=== PATIENT | female | born 1990 | race Caucasian/White ===

== ENCOUNTER 2017-01-14 08:03 | Inpatient (IN) | payer BC ==
[2017-01-14 09:02] LABS: Hematocrit 30 % (35-47); Hemoglobin 9.8 g/dl (12.0-16.0); Mean Corpuscular HGB Conc 32 g/dl (31-36); Mean Corpuscular Hemoglobin 24 pg (27-31); Mean Corpuscular Volume 74 fL (80-97); Mean Platelet Volume 10 um3 (7.4-10.4); Red Blood Count 4.08 10^6/ul (4.0-5.4); Red Cell Distribution Width 16 % (10.5-15); White Blood Count 8.3 10^3/ul (3.5-10.8)
[2017-01-14 09:03] LABS: Comments Flag Yes
[2017-01-14 09:04] LABS: Add Diff/Slide Review? Slide Review Added
[2017-01-14] MEDS ORDERED: Oxytocin in LR* 20 UNITS/1,000 ML BAG IVPB SCH ×2 (09:15→13:00)
[2017-01-14] MEDS ORDERED: Glycerin ADULT SUPP PR PRN (12:20)
[2017-01-14] MEDS ORDERED: Dibucaine 1% 28.35 GM TUBE PR PRN (12:20)
[2017-01-14] MEDS ORDERED: oxyCODONE/Acetamin 5/325 MG* TAB PO PRN (12:20)
[2017-01-14] MEDS ORDERED: Witch Hazel PAD* JAR TOPICAL PRN (12:20)
[2017-01-14] MEDS ORDERED: Simethicone CHEW TAB* 80 MG PO SCH (12:30)
[2017-01-14] MEDS: Ibuprofen TAB* 600 MG PO PRN ×2 (13:06→19:45)
[2017-01-14] MEDS: Docusate CAP* 100 MG PO SCH ×2 (14:25→20:19)
[2017-01-14] MEDS: Acetaminophen TAB* 325 MG PO PRN ×3 (16:34→23:14)
[2017-01-15] MEDS: Ibuprofen TAB* 600 MG PO PRN ×2 (04:02→10:19)
[2017-01-15] MEDS: Acetaminophen TAB* 325 MG PO PRN (05:50)
[2017-01-15 06:57] LABS: Hematocrit 27 % (35-47); Hemoglobin 8.8 g/dl (12.0-16.0); Mean Corpuscular HGB Conc 33 g/dl (31-36); Mean Corpuscular Hemoglobin 24 pg (27-31); Mean Platelet Volume 10 um3 (7.4-10.4); Red Blood Count 3.61 10^6/ul (4.0-5.4); Red Cell Distribution Width 17 % (10.5-15); White Blood Count 10.2 10^3/ul (3.5-10.8)
[2017-01-15 07:09] LABS: Comments Flag Yes; Mean Corpuscular Volume 75 fL (80-97)
[2017-01-15 07:55] VITALS: BP 106/73
[2017-01-15] MEDS ORDERED: Ferrous Gluconate TAB* 324 MG TAB PO SCH (09:00)
[2017-01-15] MEDS: Docusate CAP* 100 MG PO SCH (10:19)
== END 2017-01-15 13:26 | disposition home or self-care (01) | DRG 560 ==
LOC: MCHOBOUT 08:03 → MCHOB 08:14
PROVIDERS: ADMIT Midwife; ATTEND Midwife
PROC: 10E0XZZ Delivery of Products of Conception, External Approach (ICD-10-PCS; principal; 2017-01-14)
PROC: 3E033VJ Introduction of Other Hormone into Peripheral Vein, Percutaneous Approach (ICD-10-PCS; 2017-01-14)
PROC: 10907ZC Drainage of Amniotic Fluid, Therapeutic from Products of Conception, Via Natural or Artificial Opening (ICD-10-PCS; 2017-01-14)
DX: O48.0 Post-term pregnancy (principal); D64.9 Anemia, unspecified; O77.0 Labor and delivery complicated by meconium in amniotic fluid; O90.81 Anemia of the puerperium; Z3A.40 40 weeks gestation of pregnancy; Z37.0 Single live birth
CPT/HCPCS: 36415; 85025; 86850; 86900; 86901; A9270-GY

== ENCOUNTER 2017-04-04 07:50 | Day surgery (SDC) | payer BC ==
[~2017-04-04 07:50] MED LIST: Buffered Lidocaine 0.9% SYRIN* 5 ML/SYR SYRINGE INTRADERM ONE; Famotidine IV* 10 MG/ML 2 ML (20 mg) IV ONE
[2017-04-04 07:57] LABS: UR Preg Internal Control QC Line Present
[2017-04-04] MEDS ORDERED: Famotidine IV* 10 MG/ML 2 ML (20 mg) ONE (08:41)
[2017-04-04] MEDS ORDERED: oxyCODONE/Acetamin 5/325 MG* TAB PO PRN (09:17)
[2017-04-04] MEDS ORDERED: HYDROmorphone* 1 MG/ML 1 ML SYR IV PRN (09:17)
[2017-04-04] MEDS ORDERED: DiMENhydriNATE IV* 50 MG/ML VIAL IV PUSH PRN (09:17)
[2017-04-04] MEDS ORDERED: Midazolam* 1 MG/ML 5 ML VIAL (5 MG) ONE (10:13)
[2017-04-04] MEDS ORDERED: fentaNYL* 50 MCG/ML 2 ML VIAL (100 MCG VIAL) ONE ×2 (10:13→11:00)
[2017-04-04] MEDS ORDERED: Dexamethasone IV* 4 MG/ML 1 ML (4 MG) ONE (10:16)
[2017-04-04] MEDS ORDERED: Ondansetron INJ* 2 MG/ML VIAL ONE (10:16)
[2017-04-04] MEDS ORDERED: DiMENhydriNATE IV* 50 MG/ML VIAL ONE (10:16)
[2017-04-04] MEDS ORDERED: Succinylcholine* 20 MG/ML 10 ML VIAL ONE (10:16)
[2017-04-04] MEDS ORDERED: Lidocaine 2% PF * 5 ML VIAL ONE (10:16)
[2017-04-04] MEDS ORDERED: Ketorolac INJ* 30 MG/ML 1 ML VIAL ONE (10:16)
[2017-04-04] MEDS ORDERED: Propofol* 10 MG/ML 20 ML BTL IV PUSH ONE (10:16)
[2017-04-04] MEDS ORDERED: Bupivacaine 0.5% W/EPI SDV* 10 ML VIAL INJ ONE (10:17)
[2017-04-04 12:07] VITALS: BP 120/82
--- NOTE | 2017-04-05 08:14 | OP ---
AMENDED REPORT NOW INCLUDES DATE OF OPERATION - ESIGNED BEFORE ADJUSTMENT * DATE OF OPERATION: 04/04/17 - [facility] DATE OF : 89 SURGEON: Dr. Arteaga. PROFESSIONAL NURSING ASSISTANT: None. ANESTHESIOLOGIST: Tonia Shields MD ANESTHESIA: General endotracheal tube. PRE-OP DIAGNOSIS: Desires permanent sterilization. POST-OP DIAGNOSIS: Desires permanent sterilization. OPERATIVE PROCEDURE: Laparoscopic bilateral tubal ligation. ESTIMATED BLOOD LOSS: Minimal. SPECIMENS: None. FINDINGS: On laparoscopy, anterior bladder flap appeared normal. Both tubes and ovaries appeared normal. The uterus appeared normal. DESCRIPTION OF PROCEDURE: The patient identified and procedure identified as laparoscopic bilateral tubal ligation. Taken to the operating room, prepped and draped in the usual sterile fashion in dorsal lithotomy position under general anesthesia. A small infraumbilical incision was made and a Veress needle inserted through this. The abdomen was insufflated to 15 mmHg and a trocar was inserted. Using the Visiport, the trocar was removed from the sheath and laparoscope was inserted and the above findings were noted. A second incision was made 2 cm above the pubic symphysis in the midline and a second trocar was inserted under direct visualization. The left fallopian tube was grasped in its mid portion, followed out to its fimbriated ends, and fulgurated x3. The same procedure was carried on the right after following out to its fimbriated ends. Good hemostasis was verified. All instruments were removed from the abdomen. The abdomen was deflated of CO2. The skin was closed using skin glue and all sponge and instrument counts were correct and the patient turned to the recovery room in stable condition. [id number]/[facility] #: [id number] ORIGINALLY E-SIGNED 04/05/17 - 1225 [address]ERT
== END 2017-04-04 12:45 | disposition home or self-care (01) ==
LOC: OR 07:50
PROVIDERS: ATTEND Obstetrics & Gynecology
DX: Z30.2 Encounter for sterilization (principal)
CPT/HCPCS: 81025; J0330; J1100; J1240; J1885; J2250; J2405; J2704; J3010

== ENCOUNTER 2018-07-11 13:40 | Emergency (ER) | payer BC ==
[2018-07-11 14:38] VITALS: BP 117/70
--- NOTE | 2018-07-11 14:55 | UC ---
Back Pain HPI - HPI Summary HPI Summary: C/O upper back pain x 2 weeks but with tingling today. 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 Also c/o sore throat and chills. Doesn't recall any distinct injury for the back. Tingling down the arms into the finger tips and the legs down into the toes. Happened this morning lasting for about 2 hours and resolved. Feet still feel "weird". - History of Current Complaint Chief Complaint: UCGeneralIllness Stated Complaint: BACK PAIN ARMS/LEGS TINGLY SORE THROAT CHILLS Time Seen by Provider: 07/11/18 14:42 Hx Last Menstrual Period: 06/16/18 ?: No Onset/Duration: Gradual Onset, Lasting Weeks - 2, Worse Since - onset Severity Initially: Mild Severity Currently: Moderate Pain Intensity: 7 Character: Dull - pressure sensation Aggravating Factor(s): Movement, Lifting, Walking Alleviating Factor(s): Rest, OTC Meds Associated Signs And Symptoms: Positive: Tingling, Pain with Weight Bearing. Negative: Weakness, Numbness, Bladder Incontinence, Bowel Incontinence - Allergies/Home Medications Allergies/Adverse Reactions: Allergies Allergy/AdvReac Type Severity Reaction Status Date / Time sertraline [From Zoloft] Allergy Rash Verified 07/11/18 14:38 Home Medications: Home Medications Ibuprofen 600 mg PO Q12HR 07/11/18 [History Confirmed 07/11/18] PMH/Surg Hx/FS Hx/Imm Hx Previously Healthy: Yes Other History Of: Negative For: HIV, Hepatitis B, Hepatitis C, Anticoagulant Therapy - Surgical History Surgical History: Yes Surgery Procedure, Year, and Place: TUBAL LIGATION - Family History Known Family History: Positive: Hypertension, Diabetes Negative: Cardiac Disease - Social History Occupation: Employed Full-time Lives: With Family Alcohol Use: Occasionally Substance Use Type: None Smoking Status (MU): Never Smoked Tobacco Have You Smoked in the Last Year: No - Immunization History Most Recent Influenza Vaccination: 07/28 Most Recent Tetanus Shot: 11/03/14 Most Recent Pneumonia Vaccination: none Review of Systems Constitutional: Chills ENT: Sore Throat Musculoskeletal: Arthralgia Neurological: Paresthesia Is Patient Immunocompromised?: No All Other Systems Reviewed And Are Negative: Yes Physical Exam Triage Information Reviewed: Yes Appearance: Well-Appearing, Well-Nourished, Pain Distress - mild Vital Signs: Initial Vital Signs Temp 99.7 F 07/11/18 14:35 Pulse 101 07/11/18 14:35 Resp 16 07/11/18 14:35 BP 117/70 07/11/18 14:35 Pulse Ox 100 07/11/18 14:35 Vital Signs Reviewed: Yes Eyes: Positive: Conjunctiva Clear ENT: Positive: Nasal congestion - with allergic changes., TMs normal, Tonsillar swelling, Tonsillar exudate Neck exam: Normal Respiratory Exam: Normal Cardiovascular Exam: Normal Musculoskeletal: Positive: Strength Intact, Other: - Mid thoracic spinous process tenderness. Neurological Exam: Other - sensation to pinprick bilateral arms and left leg. Neurological: Positive: Other: - decreased sensation to pinprick lateral right lower leg S1 dermatome. Patellar DTR 2+ bilaterally. Achilles absent bilaterally Diagnostics - Radiology No standard instances Xray Interpretation: No Acute Changes Radiology Interpretation Completed By: Radiologist Back Pain Course/Dx - Differential Dx/Diagnosis Differential Diagnosis/HQI/PQRI: Herniated Disc, Strain, Sprain Provider Diagnoses: Upper thoracic back pain. lumbar radicular pain. Pharyngitis Discharge - Sign-Out/Discharge Documenting (check all that apply): Patient Departure All imaging exams completed and their final reports reviewed: Yes - Discharge Plan Condition: Stable Disposition: HOME Patient Education Materials: Arthralgia (ED), Sciatica (ED), Pharyngitis (ED) Referrals: Esther Bah MD [Primary Care Provider] - 3 Days (follow up on the numbness on the right leg) Additional Instructions: Yoga can help to prevent back pain issues in the future. [employer] is a yoga denise for your phone. - Billing Disposition and Condition Condition: STABLE Disposition: Home
--- NOTE | 2018-07-11 15:31 | RAD ---
HISTORY: right L5 radiculopathy COMPARISONS: None VIEWS: 5 , Frontal, lateral, coned-down lateral sacral, and bilateral oblique views of the lumbar spine. FINDINGS: ALIGNMENT: There is a trace scoliotic curvature of the spine. VERTEBRAL BODIES: The vertebral body heights are normal. The interpedicular distances are normal. JOINTS: The facet joints are normal. INTERVERTEBRAL DISCS: The intervertebral disc heights are normal. SOFT TISSUE: Unremarkable. OTHER: The pelvis is unremarkable. The lung bases are clear. IMPRESSION: UNREMARKABLE RADIOGRAPHS OF THE LUMBAR SPINE
== END 2018-07-11 15:49 | disposition home or self-care (01) ==
LOC: UCCORT 13:40
DX: M54.6 Pain in thoracic spine (principal); M54.5 Low back pain; J02.9 Acute pharyngitis, unspecified; Z88.8 Allergy status to other drugs, medicaments and biological substances
CPT/HCPCS: 72110; 87651; 99211; G0463

== ENCOUNTER 2018-07-13 12:58 | Emergency (ER) | payer BC ==
--- NOTE | 2018-07-13 14:30 | ED ---
Complex/Multi-Sys Presentation - HPI Summary HPI Summary: Patient presents with multiple symptoms starting 2 weeks ago. She reports she had lower back pain more noticeable on the right starting 2 weeks ago while at work. This was a gradual onset and progressed throughout the day. 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 She's been tolerating this well but reports Friday while at work after turning a patient, she developed bilateral upper extremity and lower extremity tingling. She denies pain into her extremities however she did have pain across her lower back at that time. Associated symptom of headache. She sat down to rest which seemed to help a little. She finished her shift over the next 4 hours with ongoing symptoms. When she went home, her encouraged her to take an ibuprofen which took care of the extremity tingling. She noticed the next day she had return of lower extremity tingling without pain, numbness, change in bowel or bladder habits. She was concerned about her sx and opted to get a medical exam at [facility]. She reports while here, she was seen by Dr. Brock Lundberg who ordered a lumbar x-ray. Per report this appears to be without acute findings or chronic changes. Per patient, Dr. Lawrence "cracked her back" by having her cross her arms over her chest and lifted her off the ground. She denies any improvement in symptoms nor was her exacerbation. She is here today as she woke with left shoulder and arm pain and is unsure why. She denies chest pain, shortness of breath, jaw pain, diaphoresis, shortness fatigue and no history of cardiac issues personally or in family. Left shoulder pain is worse with flexion abduction and internal and external rotation. She admits she has a monster drink every morning and usually eats and drinks fairly well at work however she has not had breakfast today. When asked if she had nausea, vomiting or upset stomach she just reported I wasn't feeling hungry with shoulder pain. She does have a history of 2 pregnancies both vaginal. She admits her hips "click" since . May have some residual or weakness as a result. No known herniated disks in her neck, thoracic spine or lumbar spine. Additionally, she reports heavier periods of late. She did have anemia during her pregnancies as well. She does not have her restrictive diet and no known history of B12 deficiency. No reports of migraines or other neuro deficits as well as a family history of neurologic pathology. NOTE: pt reports fever, chills later last week along w/ a ST. She had a rapid strep at [facility] which was neg. No h/o mono, Lyme dz. Kids are in daycare and had fevers last week - no rashes. had fever for a couple of days as well. - History Of Current Complaint Chief Complaint: EDBackInjuryPain Time Seen by Provider: 07/13/18 13:48 Hx Obtained From: Patient, Family/Tire Molder - - Allergies/Home Medications Allergies/Adverse Reactions: Allergies Allergy/AdvReac Type Severity Reaction Status Date / Time sertraline [From Zoloft] Allergy Rash Verified 07/13/18 13:06 PMH/Surg Hx/FS Hx/Imm Hx Previously Healthy: Yes Endocrine/Hematology History: Reports: Hx Anemia - during Denies: Hx Anticoagulant Therapy, Hx Diabetes, Hx Thyroid Disease Cardiovascular History: Denies: Hx Aneurysm, Hx Angina, Hx Congenital Heart Disease, Hx Congestive Heart Failure, Hx Deep Vein Thrombosis, Hx Hypotension, Hx Hypertension, Hx Myocardial Infarction, Hx Pacemaker/ICD, Hx Syncope, Hx Valvular Heart Disease Respiratory History: Denies: Hx Asthma, Hx Chronic Obstructive Pulmonary Disease (COPD), Hx Lung Cancer, Hx Pneumonia, Hx Pulmonary Embolism GI History: Denies: Hx Gall Bladder Disease, Hx Gastrointestinal Bleed, Hx Ulcer, Hx Urosepsis History: Denies: Hx Kidney Stones, Hx Renal Disease Musculoskeletal History: Reports: Hx Back Problems - LBP intermittently over past few years Denies: Hx Arthritis, Hx Fibromyalgia, Hx Osteoporosis, Hx Scoliosis, Hx Tendonitis, Hx of Fracture(s) Sensory History: Denies: Hx Contacts or Glasses, Hx Hearing Aid Opthamlomology History: Denies: Hx Contacts or Glasses Neurological History: Denies: Hx Dementia, Hx Migraine, Hx Seizures, Hx Transient Ischemic Attacks (TIA) Psychiatric History: 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 Denies: Hx Anxiety, Hx Schizophrenia, Hx Bipolar Disorder - Surgical History Surgery Procedure, Year, and Place: TUBAL LIGATION Infectious Disease History: No Infectious Disease History: Denies: Hx Hepatitis, Hx Human Immunodeficiency Virus (HIV), Traveled Outside the [place] in Last 30 Days - Family History Known Family History: Positive: Hypertension, Diabetes Negative: Cardiac Disease - Social History 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 Lives: With Family Alcohol Use: Daily Alcohol Amount: 1 or 2 per day Hx Substance Use: No Substance Use Type: Reports: None Hx Tobacco Use: No Smoking Status (MU): Never Smoked Tobacco Have You Smoked in the Last Year: No Review of Systems Constitutional: Negative Eyes: Negative ENT: Negative Cardiovascular: Negative Respiratory: Negative Gastrointestinal: Negative Positive: no symptoms reported Positive: Arthralgia, Myalgia Skin: Negative Neurological: Negative Psychological: Normal All Other Systems Reviewed And Are Negative: Yes Physical Exam Triage Information Reviewed: Yes Vital Signs On Initial Exam: Initial Vitals Temp Pulse Resp BP Pulse Ox 98.3 F 69 14 146/97 100 07/13/18 13:04 07/13/18 13:04 07/13/18 13:04 07/13/18 13:04 07/13/18 13:04 Vital Signs Reviewed: Yes Appearance: Positive: Well-Appearing, No Pain Distress, Well-Nourished Skin: Positive: Warm, Skin Color Reflects Adequate Perfusion, Dry - no rash Head/Face: Positive: Normal Head/Face Inspection Eyes: Positive: Normal, EOMI, Conjunctiva Clear ENT: Positive: Hearing grossly normal, Pharyngeal erythema - cobblestoning, TMs normal, Tonsillar swelling - B/L tonsils w/ erythema (Rt > Lt) and swelling, cryptic - no exudates, Other. Negative: Nasal drainage Neck: Positive: Supple, Nontender, No Lymphadenopathy. Negative: Nuchal Rigidity Respiratory/Lung Sounds: Positive: Clear to Auscultation, Breath Sounds Present. Negative: Rales, Rhonchi, Wheezes Cardiovascular: Positive: Normal, RRR, Pulses are Symmetrical in both Upper and Lower Extremities Abdomen Description: Positive: Nontender, No Organomegaly, Soft Musculoskeletal: Positive: Strength/ROM Intact - FROM spine w/o exacerbation/re- creation of tingling sx; spinous pp and paraspinal mm NTTP; pt reports mild discomfort in RLB w/ lumbar flexion but this at end range - no pain w/ any other lumbar ROM's., Pain @ - Lt shoulder ROM limited to 90 degrees abduction d/ t pain - she has FROM w/ flexion, internal and external rotation but has pain and "clicking/snapping" w/ these movements into shoulder -no exacerbation of tingling in UE's Neurological: Positive: Alert, Oriented to Person Place, Time, CN Intact II-III , Reflexes Intact - + 2 equal B/L. Negative: Sensory/Motor Intact - motor 5/5 equal B/L; sensation grossly intact and equal B/L EXCEPT slightly decreased sensation over Lt plantar surface compared to Rt (sensation is still present here) Psychiatric: Positive: Anxious Diagnostics - Vital Signs Vital Signs Temp Pulse Resp BP Pulse Ox 07/13/18 13:04 98.3 F 69 14 146/97 100 - Laboratory Result Diagrams: 07/13/18 15:15 07/13/18 15:15 Lab Statement: Any lab studies that have been ordered have been reviewed, and results considered in the medical decision making process. Re-Evaluation - Re-Evaluation First Eval Change: Improved Complex Multi-Symp Course/Dx Course Of Treatment: XR - cervical spine: straightening of lordosis - no DDD, stenosis. XR Lt shoulder: no acute findings. Labs: low K, low iron; mono and Lyme neg - Diagnoses Provider Diagnoses: Iron (Fe) deficiency anemia, Hypokalemia, Left shoulder tendonitis Discharge - Sign-Out/Discharge Documenting (check all that apply): Patient Departure - Discharge Plan Condition: Stable Disposition: HOME Patient Education Materials: Iron Rich Diet (ED), Hypokalemia (ED), Tendinitis (ED) Forms: *Work Release Referrals: Esther Bah MD [Primary Care Provider] - Additional Instructions: The definitive cause of your multiple issues was broken down into Left shoulder tendonitis and nutrient deficiency. It is important that you rest your shoulder and follow-up with your PCP. See education about tendonitis for supplemental care at home. If no relief, you may benefit from physical therapy. For your nutrient deficiency, it is important that you consume a well-balanced diet and reduce caffeine intake as this may alter your perception of hunger, resulting in reduced food intake. Specifically you were found to have low potassium and low iron. These may be replaced by consuming foods rich in these supplements. See education but also follow-up with PCP if you need further guidance on not only what a well-balanced diet looks like but also how to implement this into your daily routine (ie. meal prep, etc). If symptoms return or you feel worse despite recommendations, follow-up with PCP or return to ED - Billing Disposition and Condition Condition: STABLE Disposition: Home
[2018-07-13 15:22] LABS: ABS Basophils 0 10^3/ul (0-0.2); ABS Eosinophils 0 10^3/ul (0-0.6); ABS Lymphocytes 1.6 10^3/ul (1.0-4.8); ABS Monocytes 0.3 10^3/ul (0-0.8); ABS Neutrophils 2.8 10^3/ul (1.5-7.7); ABS Nucleated RBC 0 10^3/ul; Eosinophil % 0.5 % (0-6); Hematocrit 37 % (35-47); Hemoglobin 12.6 g/dl (12.0-16.0); Lymphocyte % 33.8 % (25-47); Mean Corpuscular HGB Conc 34 g/dl (31-36); Mean Corpuscular Hemoglobin 29 pg (27-31); Mean Corpuscular Volume 85 fL (80-97); Mean Platelet Volume 9.4 um3 (7.4-10.4); Nucleated Red Blood Cells % 0.1; Platelet Count 180 10^3/ul (150-450); Red Blood Count 4.38 10^6/ul (4.00-5.40); Red Cell Distribution Width 15 % (10.5-15); White Blood Count 4.9 10^3/ul (3.5-10.8)
--- NOTE | 2018-07-13 15:23 | RAD ---
Indication: LEFT shoulder pain and clicking. Tendinitis versus osteoarthritis. Comparison: No relevant prior exams available on the [facility] for comparison. Technique: Internal rotation AP, external rotation Grashey, scapular Y, axillary views LEFT shoulder Report: Negative for fracture. Normal acromioclavicular and glenohumeral joint alignment. Preserved joint spaces negative for calcific tendinopathy or abnormal soft tissue contour. IMPRESSION: #. Negative radiographic exam of the LEFT shoulder.
--- NOTE | 2018-07-13 15:27 | RAD ---
HISTORY: UE/LE tingling COMPARISONS: None VIEWS: 6 , Frontal, lateral, open-mouth odontoid, and bilateral oblique views of the cervical spine. FINDINGS: The cervical spine is visualized from the skull base through T1 . ALIGNMENT: There is straightening of the normal cervical lordosis. VERTEBRAL BODIES: The odontoid process is intact. The atlantoaxial intervals are symmetric. JOINTS: There is no subluxation or dislocation. The facet joints are unremarkable. There is no osseous or neuroforaminal narrowing on the oblique views. INTERVERTEBRAL DISCS: The intervertebral disc heights are normal. SOFT TISSUE: The prevertebral soft tissues are normal. OTHER: The skull base is normal. The lung apices are clear. IMPRESSION: STRAIGHTENING OF THE CERVICAL LORDOSIS.
[2018-07-13 15:39] LABS: EGFR Non-African American 124.2 (>60)
[2018-07-13] MEDS ORDERED: Potassium Chlor TAB* 20 MEQ TAB.ER PO ONE (15:45)
[2018-07-13] MEDS ORDERED: Ibuprofen TAB* 600 MG PO ONE (15:47)
[2018-07-13 16:46] VITALS: BP 110/73
== END 2018-07-13 16:44 | disposition home or self-care (01) ==
LOC: ED 12:58
DX: D50.9 Iron deficiency anemia, unspecified (principal); E87.6 Hypokalemia; M77.9 Enthesopathy, unspecified; Z88.8 Allergy status to other drugs, medicaments and biological substances
CPT/HCPCS: 36415; 72050; 80053; 82607; 83540; 83550; 83605; 84443; 85025; 86140; 86308; 86618; 99282; A9270-GY

== ENCOUNTER 2018-12-03 15:12 | Emergency (ER) | payer BC, MEDICAID, OTHER ==
--- OUTSIDE RECORDS SUMMARY | 2018-12-03 15:26 | XMS REPORT | Continuity of Care Document ---
:1990 External Reference #:[id number] Author Name Mitch Ken CNM Address [address] [place] [address] Care Team Providers Name Role Phone Leonor Goodman NP Primary Care Physician Unavailable Payers Type Date Identification Numbers Payment Provider Subscriber Policy Number: [id number] [employer] Bernabe Morrill PayID: [id number] [address] [place] [address] Policy Number: [id number] Medicaid [place] Bernabe Morrill PayID: [id number] [address] [place] [address] Policy Number: [id number] [employer]/BS [facility] Carla Alcantara PayID: [id number] [place] [address] Expires: 2018 Policy Number: [id number] [employer] BC/BS [facility] PayID: [id number] [place] [address] Advance Directives Description No Information Available Problems Date Description Provider Status Onset: 07/14/2014 Primigravida Mitch Ken CNM Resolved Resolved: 06/12/2016 Onset: 07/14/2014 H/O: depression Mitch Ken CNM Resolved Resolved: 06/12/2016 Onset: 06/12/2016 Multigravida Sheila Adame CNM Resolved Resolved: 01/14/2017 Family History Date Family Member(s) Problem(s) Comments Father Hypertension Father Bipolar Disorder Mother Hypertension Mother Hyperlipidemia Children 2 First Son A&W First Daughter A&W First Brother A&W Second Brother A&W Third Brother A&W half brother First Sister A&W half sister ? 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 No further problems Allergies, Adverse Reactions, Alerts Date Description Reaction Status Severity Comments 04/22/2018 Zoloft rash Active 07/14/2014 NKDA Inactive Medications Medication Date Status Form Strength Qnty SIG Indications Ordering Provider Sprintec 11/04 Active Tablets 0.25-35mg 84tab 1 by mouth osmane -mcg s every day ISABEL Ken No Active 04/22 Hx Unknown Medications /2017 - 11/04 Sertraline 07/10 Hx Tablets 50mg 30tab for initiation Mahrie HCL s take 1/2 tab Gerald Ken by mouth x 6 CNM 08/08 days then take 1 tab by mouth every day Oxycodone-Rick 04/01 Hx Tablets 5-325mg 30tab 1 by mouth Z01.818 Carl Spence taminophen s q4hr Gelber, - M.D. 07/09 Ibuprofen 04/01 Hx Tablets 600mg 30tab take one tab Z01.818 Carl A. /2016 s by mouth every Gelber, - 6 hours as M.D. 08/08 needed pain No Active 03/28 Hx Unknown Medications /2016 - 03/28 Sertraline 03/28 Hx Tablets 100mg 30tab 1 by mouth Angelinerie HCL s every day Gerald Ken CNM 07/10 Ativan 03/28 Hx Tablets 0.5mg 15tab take 1 to 2 Mitch s tablets by Jesus Manuel - mouth every 4 CNM 04/22 hours as /2018 needed for anxiety (max of 6 per day) Sertraline 03/18 Hx Tablets 50mg 30tab 1 tab by mouth O90.6 Mahrie HCL /2016 s every day Jesus Manuel, - CNM 03/28 Sertraline 02/17 Hx Tablets 50mg 30tab for initiation Z39.2 Mahrie HCL /2016 s take 1/2 tab Jesus Manuel, - by mouth x 6 CNM 03/18 days then take 1 tab by mouth every day Ferrousul 10/16 Hx Tablets 325(65Fe) 90tab 1 tab by mouth Lynette /2016 mg s twice a day Shakira - (take with , CNM 02/26 orange juice or vit c tab) Sprintec 28 08/29 Hx Tablets 0.25-35mg 84tab 1 by mouth Carl Spence -mcg s every day Gerald Arteaga M.D. 06/12 Depo-Provera 03/09 Hx Suspension 150mg/ml 1unit 1 Lynette s intramuscular Shakira - injection , [facility] 08/28 every 3months for contraception Zantac 75 10/11 Hx Tablets 75mg 30tab 1 tab by mouth Lynette s every day as Shakira - needed for , CN 02/03 heartburn No Active 07/14 Hx Unknown Medications /2013 - 07/14 Hx Unknown Vitamin /0000 - 07/14 Plus Hx Tablets 7-0.4-100 100ta ok to Unknown Dha /0000 mg bs substitute pnv - + dha covered 03/09 by pt /2014 insurance 1 daily by mouth Medications Administered in Office Medication Date Status Form Strength Qnty SIG Indications Ordering Provider PT SCRN Tbco Administered Injection Mahrie Id as Non User 019 ISABEL Ken PT SCRN Tbco Administered Injection Mahrie Id as Non User 018 ISABEL Ken Immunizations CPT Code Status Date Vaccine Lot # [id number] Given 10/29/2016 Tetnus, Diptheria Toxoids And Acellular Pertussis, [id number] PT > 7Yrs Old [id number] Given 11/03/2014 Tetnus, Diptheria Toxoids And Acellular Pertussis, [id number] PT > 7Yrs Old 19876 Given 07/14/2014 Influenza Virus Vaccine Split Virus Use For [id number] Individual 3Yr Older Vital Signs Date Vital Result Comment 11/04/2018 12:53pm BP Systolic 114 mmHg BP Diastolic 72 mmHg Height 63 inches 5'3" Weight 144.00 lb BMI (Body Mass Index) 25.5 kg/m2 Last Menstrual Period 4860927 2 Parity 2 04/22/2018 1:56pm BP Systolic 110 mmHg BP Diastolic 74 mmHg Height 63 inches 5'3" Weight 150.00 lb BMI (Body Mass Index) 26.6 kg/m2 Last Menstrual Period 9230869 2 Parity 2 08/08/2017 8:13am BP Systolic 114 mmHg BP Diastolic 70 mmHg Height 63 inches 5'3" Weight 153.00 lb BMI (Body Mass Index) 27.1 kg/m2 Last Menstrual Period 7035695 2 Parity 2 07/10/2017 2:22pm BP Systolic 110 mmHg BP Diastolic 68 mmHg Height 63 inches 5'3" Weight 150.00 lb BMI (Body Mass Index) 26.6 kg/m2 Last Menstrual Period 4909650 2 Parity 2 04/10/2017 9:52am BP Systolic 120 mmHg BP Diastolic 76 mmHg Body Temperature 98.2 F Height 63 inches 5'3" Weight 144.00 lb BMI (Body Mass Index) 25.5 kg/m2 Last Menstrual Period 9167919 2 Parity 2 04/01/2017 1:00pm BP Systolic 120 mmHg BP Diastolic 76 mmHg Body Temperature 98.2 F Oral Heart Rate 60 /min Respiratory Rate 20 /min Height 63 inches 5'3" Weight 146.00 lb BMI (Body Mass Index) 25.9 kg/m2 Last Menstrual Period 0092601 2 Parity 2 03/18/2017 10:05am BP Systolic 114 mmHg BP Diastolic 64 mmHg Height 63 inches 5'3" Weight 147.00 lb BMI (Body Mass Index) 26.0 kg/m2 Last Menstrual Period 9474164 2 Parity 2 02/26/2017 11:12am BP Systolic 122 mmHg BP Diastolic 66 mmHg Height 63 inches 5'3" Weight 146.00 lb BMI (Body Mass Index) 25.9 kg/m2 Last Menstrual Period 9555741 2 Parity 2 02/17/2017 2:57pm BP Systolic 112 mmHg BP Diastolic 70 mmHg Height 63 inches 5'3" Weight 150.00 lb BMI (Body Mass Index) 26.6 kg/m2 Last Menstrual Period 1724530 2 Parity 2 06/12/2016 1:33pm BP Systolic 120 mmHg BP Diastolic 64 mmHg Height 63 inches 5'3" Weight 145.00 lb BMI (Body Mass Index) 25.7 kg/m2 Last Menstrual Period 0016624 2 Parity 1 08/29/2015 1:10pm BP Systolic 122 mmHg BP Diastolic 76 mmHg Height 63 inches 5'3" Weight 155.00 lb BMI (Body Mass Index) 27.5 kg/m2 Last Menstrual Period 4170886 1 Parity 1 03/09/2015 10:08am BP Systolic 112 mmHg BP Diastolic 72 mmHg Height 63 inches 5'3" Weight 152.00 lb BMI (Body Mass Index) 26.9 kg/m2 Last Menstrual Period 9051978 1 Parity 1 02/03/2015 12:54pm BP Systolic 122 mmHg BP Diastolic 72 mmHg Body Temperature 99.6 F Height 63 inches 5'3" Weight 151.00 lb BMI (Body Mass Index) 26.7 kg/m2 Last Menstrual Period 6826432 1 Parity 1 07/14/2014 7:47am BP Systolic 112 mmHg BP Diastolic 66 mmHg Height 63 inches 5'3" Weight 143.00 lb BMI (Body Mass Index) 25.3 kg/m2 Last Menstrual Period 1708227 1 Parity 0 Results Test Date Facility Test Result H/L Range Note Laboratory test 04/22/2018 [facility] Cytology SEE RESULT [address] [place] [address] BELOW [phone] CBC With No Diff 07/10/2017 [facility] White Blood 7.3 10^3/uL N 3.5-10.8 [place] [address] Count [phone] Red Blood Count 4.76 10^6/uL N 4.0-5.4 Hemoglobin 12.5 g/dL N 12.0-16.0 Hematocrit 40 % N 35-47 Mean Corpuscular Volume 84 fL N 80-97 Mean Corpuscular Hemoglobin 26 pg Low 27-31 Mean Corpuscular HGB Conc 31 g/dL N 31-36 Red Cell Distribution Width 17 % High 10.5-15 Platelet Count 251 10^3/uL N 150-450 Mean Platelet Volume 9 um3 N 7.4-10.4 Laboratory test 07/10/2017 [facility] HCG 0.85 mIU/mL N [address] [place] [address] [phone] Prolactin 5.8 ng/mL N 1.0-25.0 3 TSH 3.20 mcIU/mL N 0.34-5.60 4 T4 Free 0.68 ng/dL N 0.61-1.12 5 Laboratory test 04/04/2017 [facility] Negative N Negative [address] [place] [address] (HCG) Urine [phone] CBC Auto Diff 04/01/2017 [facility] White Blood 6.9 10^3/uL N 3.5-10.8 [place] [address] Count [phone] Red Blood Count 4.66 10^6/uL N 4.0-5.4 Hemoglobin 12.0 g/dL N 12.0-16.0 Hematocrit 38 % N 35-47 Mean Corpuscular Volume 80 fL N 80-97 Mean Corpuscular Hemoglobin 26 pg Low 27-31 Mean Corpuscular HGB Conc 32 g/dL N 31-36 Red Cell Distribution Width 20 % High 10.5-15 Platelet Count 242 10^3/uL N 150-450 Mean Platelet Volume 9 um3 N 7.4-10.4 Abs Neutrophils 3.7 10^3/uL N 1.5-7.7 Abs Lymphocytes 2.5 10^3/uL N 1.0-4.8 Abs Monocytes 0.6 10^3/uL N 0-0.8 Abs Eosinophils 0.1 10^3/uL N 0-0.6 Abs Basophils 0 10^3/uL N 0-0.2 Abs Nucleated RBC 0.01 10^3/uL N Granulocyte % 52.7 % N 38-83 Lymphocyte % 36.6 % N 25-47 Monocyte % 8.7 % N 1-9 Eosinophil % 1.6 % N 0-6 Basophil % 0.4 % N 0-2 Nucleated Red Blood Cells % 0.1 N Laboratory test 12/10/2016 [facility] Group B Strep SEE RESULT 7, [address] [place] [address] Culture Screen BELOW [phone] Laboratory test 10/15/2016 [facility] Glucose 1 HR 79 mg/dL N 70-16 [address] [place] [address] Post Prandial 0 [phone] CBC With No Diff 10/15/2016 [facility] White Blood 8.3 10^3/uL N 3.5-1 [place] [address] Count 0.8 [phone] Red Blood Count 3.50 10^6/uL Low 4.0-5.4 Hemoglobin 10.5 g/dL Low 12.0-16.0 Hematocrit 31 % Low 35-47 Mean Corpuscular Volume 89 fL N 80-97 Mean Corpuscular Hemoglobin 30 pg N 27-31 Mean Corpuscular HGB Conc 34 g/dL N 31-36 Red Cell Distribution Width 13 % N 10.5-15 Platelet Count 183 10^3/uL N 150-450 Mean Platelet Volume 10 um3 N 7.4-10.4 PNL No 06/12/2016 [facility] Rubella Screen Immune IU/ [place] [address] [phone] Hemoglobin A1c 5.2 % N Less than 6.0 10 Hepatitis B Surface Ag Nonreactive N Nonreactive 11 Syphillis Igg W/Reflex RPR Nonreactive N Nonreactive 12 CBC With No 06/12/2016 [facility] White Blood 7.3 10^3/uL N 3.5-10.8 [place] [address] Count [phone] Red Blood Count 4.39 10^6/uL N 4.0-5.4 Hemoglobin 12.3 g/dL N 12.0-16.0 Hematocrit 38 % N 35-47 Mean Corpuscular Volume 87 fL N 80-97 Mean Corpuscular Hemoglobin 28 pg N 27-31 Mean Corpuscular HGB Conc 32 g/dL N 31-36 Red Cell Distribution Width 17 % High 10.5-15 Platelet Count 198 10^3/uL N 150-450 Mean Platelet Volume 10 um3 N 7.4-10.4 Type And Screen 06/12/2016 [facility] [place] [address] Type [phone] Antibody Screen NEGATIVE N HIV 1/2 AB 06/12/2016 [facility] HIV 1 2 Nonreactive N Nonreactive [address] [place] [address] Antibody [phone] Lead 06/12/2016 [facility] Lead <1.0 g/dL N 0.0-4.9 14 [place] [address] [phone] Parvovirus 06/12/2016 [facility] Parvovirus 5.01 index Abnormal <0.90 [address] [place] [address] (B19) IgG Igm [phone] Antibody Parvovirus (B19) IgM Antibody 0.22 index N <0.90 16 Parvovirus Interpretation See Comment N 17 Laboratory test 06/12/2016 [facility] Cytology SEE RESULT [address] [place] [address] BELOW [phone] GC/Chlamydia 06/12/2016 [facility] Chlamydia Negative [place] [address] trachomatis Rna [phone] Neisseria gonorrhoeae (GC) Rna Negative N Negative Urine Culture And 06/12/2016 [facility] Urine Culture SEE RESULT 19 [place] [address] BELOW [phone] Laboratory test 12/29/2014 [facility] Group B Strep (SEE NOTE) [address] [place] [address] Culture Screen [phone] Urine Culture And 12/13/2014 [facility] Urine Culture (SEE NOTE ) [address] [place] [address] [phone] Urinalysis Profile 12/13/2014 [facility] [place] [address] [phone] Urine Appearance Cloudy N Urine Specific [place] 1.021 N 1.010-1.030 Urine pH 6.0 N 5-9 Urine Urobilinogen Negative N Negative Urine Ketones Trace Abnormal Negative Urine Protein Negative N Negative Urine Leukocytes 1+ Abnormal Negative Urine Blood Negative N Negative Urine Nitrite Negative N Negative Urine Bilirubin Negative N Negative Urine Glucose Negative N Negative Urine White Blood Cell 1+(6-10/hpf) Abnormal Absent Urine Red Blood Cell Trace(0-2/hpf) N Absent Urine Bacteria Absent N Absent Urine Squamous Epithelial Cell Present Abnormal Absent Laboratory test 11/03/2014 [facility] Glucose 1 HR 81 mg/dL N 70-160 [place] [address] Post Prandial [phone] CBC With No Diff 11/03/2014 [facility] White Blood 8.3 10^3/uL N 4.8-10.8 [place] [address] Count [phone] Red Blood Count 3.53 10^6/uL Low 4.0-5.4 Hemoglobin 11.0 g/dL Low 12.0-16.0 Hematocrit 33 % Low 35-47 Mean Corpuscular Volume 92 fL N 80-97 Mean Corpuscular Hemoglobin 31 pg N 27-31 Mean Corpuscular HGB Conc 34 g/dL N 31-36 Red Cell Distribution Width 13 % N 10.5-15 Platelet Count 184 10^3/uL N 150-450 Mean Platelet Volume 10 um3 N 7.4-10.4 GC/Chlamydia Dna 08/11/2014 [facility] GC/Chlamydia Rna (SEE NOTE) [address] [place] [address] [phone] PNL No 07/14/2014 [facility] Rubella Screen Immune N Immune 23 [place] [address] IU/mL [phone] Hemoglobin A1c 5.0 % N Less than 6.0 24 Hepatitis B Surface Antigen Nonreactive N Nonreactive 25 RPR 07/14/2014 [facility] Syphilis IgG TNP N Nonreactive [address] [place] [address] [phone] RPR Nonreactive N Nonreactive 27 RPR Titer TNP N Pediatric/Maternal YES N CBC With No 07/14/2014 [facility] White Blood 8.6 10^3/uL N 4.8-10.8 [place] [address] Count [phone] Red Blood Count 4.37 10^6/uL N 4.0-5.4 Hemoglobin 13.5 g/dL N 12.0-16.0 Hematocrit 39 % N 35-47 Mean Corpuscular Volume 90 fL N 80-97 Mean Corpuscular Hemoglobin 31 pg N 27-31 Mean Corpuscular HGB Conc 35 g/dL N 31-36 Red Cell Distribution Width 14 % N 10.5-15 Platelet Count 223 10^3/uL N 150-450 Mean Platelet Volume 9 um3 N 7.4-10.4 Type And Screen 07/14/2014 [facility] [place] [address] Type [phone] Antibody Screen NEGATIVE N HIV 1/2 AB 07/14/2014 [facility] HIV 1 2 Nonreactive N Nonreactive [address] [place] [address] Antibody [phone] Toxoplasma Igg 07/14/2014 [facility] Toxoplasma Negative N Negative & [place] [address] IgG Antibody [phone] Toxoplasma IgG Antibody Index <3 IU/mL N 29 Toxoplasma IgM Antibody Negative N Negative Toxoplasma IgM Antibody Index <0.55 threshold N 30 Urine Culture And 07/14/2014 [facility] Urine Culture (SEE NOTE ) [address] [place] [address] [phone] SEE RESULT BELOW Name: BERNABE WHARTON : [address]: Mitch Ken CNM Acct: [id number] Unit: [id number] AGE: 27 Location: [facility] Re04/22/18 SEX: F Status: REG REF SPEC: [id number] CARLOS: 04/22/18-[address] [facility] [address]: Mitch Ken CNM REQ: [id number] RECD: 04/23/18-1230 STATUS: SOUT _ ORDERED: TP IMAGE ANALYS COMMENTS: [id number] Negative for Intraepithelial lesion or Malignancy A. Ectocervical/Endocervical Specimen Adequacy: Satisfactory of evaluation Transformation zone component identified Patient Information: HPV: Thin Layer Pap Test w/reflex to high risk HPV RNA testing when ASCUS Actual Specimen Date: 04/22/18 Last Menstrual Date: 03/30/18 Date of Last Specimen: 06/12/16 ?: N Post Menopausal?: N Hysterectomy?: N Previous Abnormal Pap Smears?:N Signed by and Reported on: SILVIA Cristina(ASCP) 1341 This Pap test was evaluated with the assistance of the IcarusPrep Test Imaging System. Due to cytologic findings at the rural health consultant microscope, comprehensive manual rescreening by a Automobile Accessories Installer may be required. The Pap Smear is a screening test designed to aid in the detection of premalignant and malignant conditions of the uterine cervix. It is not a diagnostic procedure and should not be used as the sole means of detecting cervical cancer. Both false- positive and false- negative reports do occur. Depending on your risk status, a Pap smear should be obtained and evaluated every 1-3 years. END OF REPORT DEPARTMENT OF PATHOLOGY, [address] [place] [address] Maikel Trevino M.D. Director [facility] # [id number] 2 <5.0 Negative 5.0 - 25.0 Indeterminate (Repeat testing recommended after 72 hours) >25.0 Positive Perimenopausal women can display HCG levels of up to 20 mIU/mL 3 [id number] 4 [id number] 5 [id number] 6 If is still suspected, please repeat test after 48 to 72 hours. This test detects intact HCG only and is indicated for the early detection of . 7 [id number] 8 SEE RESULT BELOW Name: BERNABE ALCANTARA : [address]: Zenobia Adame [facility] Acct: [id number] Unit: [id number] AGE: 26 Location: [facility] Re12/10/16 SEX: F Status: REG REF SPEC: [id number] CARLOS: 12/10/[address]: Zenobia Adame [facility] REQ: [id number] RECD: 12/10/16 STATUS: COMP _ SOURCE: KYLER/DAMON/RE SPDESC: ORDERED: Kiera Aguilar COMMENTS: [id number] QUERIES: Is Patient Penicillin Allergic? N Is patient penicillin allergic and/or sensitivities needed? N Provider Requisition # [id number] Procedure Result Reported Site Group B Strep Culture Screen Final 12/12/16- 1347 ML Group B Strep Screen Negative * ML - MAIN LAB ([facility]) . END OF REPORT * ML=Testing performed at Main Lab DEPARTMENT OF PATHOLOGY, [address] [place] [address] Maikel Trevino M.D. Director [facility] # [id number] 9 [id number] 10 Therapeutic target for the treatment of diabetes Mellitus patients is <7% HBA1C, and in selective patients <6.0%.Please refer to [place] [employer] Diabetic care guidelines for further information. [address] [facility] [address] 12 Warning: A positive result is not useful for establishing a diagnosis of syphilis. In most situations, such a result may reflect a prior treated infection; a negative result can exclude a diagnosis of syphilis except for incubating or early primary disease. 13 It is recognized that currently available assays for the detection of antibodies to HIV-1 and/or HIV-2 may not detect all infected individuals. HIV antibodies may be undetectable in some stages of the infection and in some clinical conditions. The performance of this assay has not been established for populations of infants or children. Assayed by Chemiluminescence Microparticle Immunoassay on the Siemens Advia Centaur CP. Values obtained with different methods or kits cannot be used interchangeably.The diagnostic specificity of the ADVIA Centaur 1/O/2 Enhanced assay in the low risk population was 99.90% (6052/6058) with a 95% confidence interval of 99.78 to 99.96%. 14 ADDITIONAL INFORMATION Testing performed by Inductively Coupled Plasma-Mass Spectrometry (ICP-MS). This test was developed and its performance characteristics determined by [facility] in a manner consistent with CLIA requirements. This test has not been cleared or approved by the U.S. Food and Drug Administration. 15 Positive 16 Negative 17 RESULT: Results suggest past infection. Test Performed by: [address] [address] Supervisor Mails: James Moreno II, M.D., Ph.D. 18 SEE RESULT BELOW Name: BERNABE ALCANTARA : [address]: Zenobia Adame CNM Acct: [id number] Unit: [id number] AGE: 25 Location: [facility] Re06/12/16 SEX: F Status: REG REF SPEC: [id number] CARLOS: 06/12/16-[address] [facility] [address]: Zenobia Adame CNM REQ: [id number] RECD: 06/12/16 STATUS: SOUT _ ORDERED: IMAGE ANALYSIS COMMENTS: [id number] FINAL DIAGNOSIS Negative for Intraepithelial lesion or Malignancy A. Ectocervical/Endocervical Specimen Adequacy: Satisfactory of evaluation Transformation zone component identified Patient Information: HPV: Thin Layer Pap Test w/reflex to high risk HPV RNA testing when ASCUS Actual Specimen Date: 06/12/16 Last Menstrual Date: 04/07/16 Spec Date if unknown: never ?: Y Signed (signature on file) RafiSILVIA Rachel (ASCP) 06/13 1311 This Pap test was evaluated with the assistance of the IcarusPrep Test Imaging System. Due to cytologic findings at the rural health consultant microscope, comprehensive manual rescreening by a Automobile Accessories Installer may be required. The Pap Smear is a screening test designed to aid in the detection of premalignant and malignant conditions of the uterine cervix. It is not a diagnostic procedure and should not be used as the sole means of detecting cervical cancer. Both false- positive and false- negative reports do occur. Depending on your risk status, a Pap smear should be obtained and evaluated every 1-3 years. END OF REPORT * ML=Testing performed at Main Lab DEPARTMENT OF PATHOLOGY, [address] [place] [address] Maikel Trevino M.D. Director [facility] # [id number] 19 SEE RESULT BELOW Name: BERNABE ALCANTARA : [address]: Zenobia Adame [facility] Acct: [id number] Unit: [id number] AGE: 25 Location: [facility] Re06/12/16 SEX: F Status: REG REF SPEC: [id number] CARLOS: 06/12/16-[address]: Zenobia Adame [facility] REQ: [id number] RECD: 06/12/166 STATUS: COMP _ SOURCE: URINE SPDESC: ORDERED: Urine Culture COMMENTS: [id number] Procedure Result Reported Site Urine Culture Final 06/13/16- 1610 ML No Growth (<1,000 CFU/mL) * ML - MAIN LAB ([facility]) . END OF REPORT * ML=Testing performed at Main Lab DEPARTMENT OF PATHOLOGY, [address] [place] [address] Maikel Trevino M.D. Director [facility] # [id number] 20 RUN DATE: 12/31/14 [facility] LAB LIVE PAGE 1 RUN TIME: [address] [place] [address] Specimen Inquiry Name: BERNABE ALCANTARA : [address]: Lynette Rosenberg [facility] Acct: [id number] Unit: [id number] AGE: 24 Location: [facility] Re12/29/14 SEX: F Status: REG REF SPEC: [id number] CARLOS: 12/29/14-[address]: Lynette Rosenberg [facility] REQ: [id number] RECD: 12/29/14 STATUS: COMP _ SOURCE: CER/VAG/RE SPDESC: ORDERED: Grp B Strp Scrn QUERIES: Is Patient Penicillin Allergic? N Is patient penicillin allergic and/or sensitivities needed? N Provider Requisition # [id number] Procedure Result Verified Site Group B Strep Culture Screen Final 12/31/14- 947 ML Group B Strep Screen Negative * ML - MAIN LAB ([facility]) . Maikel Gibson M.D. END OF REPORT * ML=Testing performed at Main Lab DEPARTMENT OF PATHOLOGY, [facility] [address] [place] [address] Maikel Trevino M.D. Director [facility] # [id number] 21 RUN DATE: 12/15/14 [facility] LAB LIVE PAGE 1 RUN TIME: [address] [place] [place] [address] Specimen Inquiry Name: BERNABE ALCANTARA : [address]: Lynette Rosenberg [facility] Acct: [id number] Unit: [id number] AGE: 24 Location: [facility] Re12/13/14 SEX: F Status: DEP REF SPEC: [id number] CARLOS: 12/13/14-[address]: Lynette Rosenberg [facility] [facility] REQ: [id number] RECD: 12/13/14 STATUS: IVELISSE JULIAN DR: Esther Bah MD _ SOURCE: URINE SPDESC: ORDERED: Urine Culture Procedure Result Verified Site Urine Culture Final 12/15/14- 1037 L Organism 1 NORMAL JOVANA [place] Count 10-25,000 (Moderate) CFU/ML END OF REPORT * ML=Testing performed at Main Lab DEPARTMENT OF PATHOLOGY, [address] [place] [id number] Maikel Trevino M.D. Director [facility] # [id number] 22 RUN DATE: 08/12/14 [facility] LAB LIVE PAGE 1 RUN TIME: [address] [place] [place] [address] Specimen Inquiry Name: BERNABE ALCANTARA : [address]: Lynette Rosenberg [facility] Acct: [id number] Unit: [id number] AGE: 23 Location: [facility] Re08/11/14 SEX: F Status: REG REF SPEC: [id number] CARLOS: 08/11/[address] [facility] [address]: Lynette Rosenberg [facility] REQ: [id number] RECD: 08/11/14 STATUS: COMP _ SOURCE: URINE SPDESC: ORDERED: PHIL/Julio RNA QUERIES: Medent Number [id number] Procedure Result Verified Site Chlamydia Trachomatis RNA Final 08/12/14- 1433 ML NEGATIVE for Chlamydia trachomatis rRNA GC (N. gonorrhoeae) RNA Final 08/12/14- 1423 ML NEGATIVE for Neisseria gonorrhoeae rRNA A negative result does not preclude the presence of a C. trachomatis or N. gonorrhoeae infection because results are dependent on adequate specimen collection, absence of inhibitors, and sufficient rRNA to be detected. Test results may be affected by improper specimen collection, improper storage, technical error, or specimen mixup. Limitations of the Procedure: The Aptima Combo 2 Assay is not intended for the evaluation of suspected sexual abuse or for other medico-legal indications. For those patients for whom a false positive result may have adverse psychosocial impact, the [facility] recommends retesting by a method using an alternate technology. Therapeutic failure or success cannot be determined with the Aptima Combo 2 Assay since nucleic acid may persist following appropriate antimicrobial therapy. Results from the Aptima Combo 2 Assay should be interpreted in conjunction with other laboratory and clinical data available to the clinican. CONTINUED ON NEXT PAGE * ML=Testing performed at Main Lab DEPARTMENT OF PATHOLOGY, [facility] [address] [place] [address] Maikel Trevino M.D. Director [facility] # [id number] RUN DATE: 08/12/14 [facility] LAB LIVE PAGE 2 RUN TIME: 8683 [facility] [place], [place] [address] Specimen Inquiry Patient: BERNABE ALCANTARA [id number] (Continued) Specimen: [id number] Collected: 08/11/14 Received: 08/11/14-1200 (Continued) Procedure Result Verified Site GC (N. gonorrhoeae) RNA Final (continued) 08/12/14 1662 Performance characteristics for detecting C. trachomatis and N. gonorrhoeae are derived from high prevalence populations. Positive results in low prevalence populations should be interpreted carefully with the understanding that the likelihood of a false positive may be higher than a true positive. END OF REPORT * ML=Testing performed at Main Lab DEPARTMENT OF PATHOLOGY, [address] [place] [address] Maikel Trevino M.D. Director [facility] # [id number] 23 SCREENING NOS 24 Therapeutic target for the treatment of diabetes Mellitus patients is <7% HBA1C, and in selective patients <6.0%.Please refer to [place] [employer] Diabetic care guidelines for further information. 25 YES 26 --- 07/15/14 1046 --- Syphilis IgG previously reported as: Nonreactive Warning: A positive result is not useful for establishing a diagnosis of syphilis. In most situations, such a result may reflect a prior treated infection; a negative result can exclude a diagnosis of syphilis except for incubating or early primary disease. 27 --- 07/15/141046 --- RPR previously reported as: Test not performed --- 07/15/14 1134 --- RPR previously reported as: --- 07/15/141046 --- RPR previously reported as: Test not performed 28 It is recognized that currently available assays for the detection of antibodies to HIV-1 and/or HIV-2 may not detect all infected individuals. HIV antibodies may be undetectable in some stages of the infection and in some clinical conditions. The performance of this assay has not been established for populations of infants or children. Assayed by Chemiluminescence Microparticle Immunoassay on the Siemens Advia Centaur CP. Values obtained with different methods or kits cannot be used interchangeably.The diagnostic specificity of the ADVIA Centaur 1/O/2 Enhanced assay in the low risk population was 99.90% (6052/6058) with a 95% confidence interval of 99.78 to 99.96%. 29 REFERENCE VALUE <=9 IU/mL (Negative) 10-11 IU/mL (Equivocal) >=12 IU/mL (Positive) Test Performed by: [facility] - [address] [address] Supervisor Mails: Justice Bourgeois M.D. 30 REFERENCE VALUE <0.55 (Negative) 0.55 to <0.65 (Equivocal) >=0.65 (Positive) 31 RUN DATE: 07/16/14 [facility] LAB LIVE PAGE 1 RUN TIME: [address] [place] [address] Specimen Inquiry Name: BERNABE ALCANTARA : [address]: Mitch Ken CNM Acct: [id number] Unit: [id number] AGE: 23 Location: [facility] Re07/14/14 SEX: F Status: REG REF SPEC: [id number] CARLOS: 07/14/[address]: Mitch Ken CNM REQ: [id number] RECD: 07/14/14 STATUS: COMP _ SOURCE: URINE SPDESC: ORDERED: Urine Culture QUERIES: Medent Number [id number] Urine Source: Random Procedure Result Verified Site Urine Culture Final 07/16/14- 1027 ML No Growth Day 2 (<1,000 CFU/mL) END OF REPORT * ML=Testing performed at Main Lab DEPARTMENT OF PATHOLOGY, [address] [place] [address] Maikel Trevino M.D. Director [facility] # [id number] Procedures Date Code Description Status 08/08/2017 43761 Echography Transvaginal Completed 04/04/2017 78233 Laparoscopy W/Wo Transection W/Fulguration Of Oviducts Completed 01/14/2017 53395 Obstetric Care Routine Completed 01/05/2017 28000 Non-Stress Test Completed 12/10/2016 23212 Echography Uterus Limited Completed 11/25/2016 00012 Non-Stress Test Completed 08/26/2016 50503 Echography Uterus Complete Completed 06/12/2016 25986 OB Ultrasound First Trimester Completed 06/02/2015 18982 Injection Intramuscular Or Subcutaneous Completed 03/10/2015 35522 Injection Intramuscular Or Subcutaneous Completed 01/29/2015 85338 Obstetric Care Routine Completed 01/29/2015 23292 Obstetric Care Routine Completed 01/24/2015 72159 Non-Stress Test Completed 12/13/2014 09788 Non-Stress Test Completed 11/03/2014 40570 Injection Intramuscular Or Subcutaneous Completed 09/12/2014 57162 Echography Uterus Complete Completed 07/14/2014 89093 OB Ultrasound First Trimester Completed Encounters Type Date Location Provider Dx Diagnosis Office Visit 11/04/2018 [facility] Mitch Ken CNM Z30.8 Encounter for other 1:00p contraceptive management Office Visit 04/22/2018 [facility] Office Mitch Ken CNM Z01.419 Encntr for perfect binder setter exam 2:20p (general) (routine) w/o abn findings R35.0 Frequency of micturition N39.3 Stress incontinence (female) (male) Office Visit 08/08/2017 8:20a [facility] Mitch Ken N92.6 Irregular CNM menstruation, unspecified Office Visit 07/10/2017 2:40p [facility] Office Mitch Ken O90.6 mood CNM disturbance N92.6 Irregular menstruation, unspecified Office Visit 04/01/2017 1:00p [facility] Office Carl Spence Z01.818 Encounter for other Kendall Arteaga preprocedural examination Office Visit 03/18/2017 10:20a [facility] Mitch Ken O90.6 mood CNM disturbance Office Visit 02/26/2017 11:20a [facility] Office Carl Spence Z30.2 Encounter for Kendall Arteaga sterilization Office Visit 08/29/2015 1:30p [facility] Melyssa Billingsley Z30.9 Encounter for [employer] contraceptive management, unspecified Office Visit 01/24/2015 9:09a Delivery Sheila Adame, 644.13 Labor Threatened CNM Other Antepartum Cond Or Compl Office Visit 12/13/2014 11:59a [facility] Office Lynette V22.0 Supervision Of ISABEL Rosenberg Normal First 644.10 Labor Threatened Other Episode Of Care Unspec Or N/A Plan of Treatment 11/04/2018 - Mitch Ken CNMZ30.8 Encounter for other contraceptive managementComments:PARQ oral contraceptives. Pt has successfully used sprintec 28 in the past. Would like to re-start. Follow-up for annual care 04/2019 or sooner PRN.
[2018-12-03 15:29] VITALS: BP 122/73
--- NOTE | 2018-12-03 15:37 | UC ---
Throat Pain/Nasal Audie HPI - HPI Summary HPI Summary: 28-year-old female presents with 2 day history of sore throat. States her son was diagnosed 4 days ago with strep throat. Denies ear pain, nasal congestion, postnasal drip, dysphagia, cough, chest pain, shortness of breath, abdominal pain, nausea, vomiting, or diarrhea. - History of Current Complaint Chief Complaint: UCRespiratory Stated Complaint: ST Time Seen by Provider: 12/03/18 15:18 Hx Obtained From: Patient Hx Last Menstrual Period: 11/13/18 Pain Intensity: 7 - Allergies/Home Medications Allergies/Adverse Reactions: Allergies Allergy/AdvReac Type Severity Reaction Status Date / Time sertraline [From Zoloft] Allergy Rash Verified 12/03/18 15:24 PMH/Surg Hx/FS Hx/Imm Hx Previously Healthy: Yes - Denies significant PMH Other History Of: Negative For: HIV, Hepatitis B, Hepatitis C, Anticoagulant Therapy - Surgical History Surgical History: Yes Surgery Procedure, Year, and Place: TUBAL LIGATION - Family History Known Family History: Positive: Hypertension, Diabetes Negative: Cardiac Disease - Social History Occupation: Employed Full-time Lives: With Family Alcohol Use: Daily Alcohol Amount: 1 or 2 per day Substance Use Type: None Smoking Status (MU): Never Smoked Tobacco Have You Smoked in the Last Year: No - Immunization History Most Recent Influenza Vaccination: 07/28 Most Recent Tetanus Shot: 11/03/14 Most Recent Pneumonia Vaccination: none Review of Systems All Other Systems Reviewed And Are Negative: Yes Constitutional: Negative: Fever, Chills Eyes: Negative: Drainage, Eye Redness ENT: Positive: Sore Throat. Negative: Ear Ache, Nasal Discharge, Sinus Congestion, Sinus Pain/Tenderness Respiratory: Negative: Shortness Of Breath, Cough Cardiovascular: Negative: Palpitations, Chest Pain Gastrointestinal: Negative: Abdominal Pain, Vomiting, Diarrhea, Nausea Genitourinary: Positive: Negative Musculoskeletal: Positive: Negative Neurological: Positive: Negative Physical Exam - Summary Physical Exam Summary: GENERAL APPEARANCE: Well developed, well nourished, alert and cooperative, and appears to be in no acute distress. EYES: Conjunctiva clear. No drainage. PERRL, EOM intact. Vision is grossly intact. EARS: External auditory canals and tympanic membranes clear, hearing grossly intact. NOSE: No nasal discharge. THROAT: Pharyngeal erythema. 2+ tonsils with exudate. Uvula midline. Oral cavity normal. Teeth and gingiva in good general condition. NECK: Neck supple, non-tender. Mild anterior cervical lymphadenopathy. CARDIAC: Normal S1 and S2. No S3, S4 or murmurs. Rhythm is regular. There is no peripheral edema, cyanosis or pallor. Extremities are warm and well perfused. Capillary refill is less than 2 seconds. Peripheral pulses intact. LUNGS: Clear to auscultation without rales, rhonchi, wheezing or diminished breath sounds. ABDOMEN: Positive bowel sounds. Soft, nondistended, nontender. No guarding or rebound. No masses or hepatosplenomegally. MUSKULOSKELETAL: ROM intact to all extremities. No joint erythema or tenderness. Normal muscular development. Normal gait. SKIN: Skin normal color, texture and turgor with no lesions or eruptions. Triage Information Reviewed: Yes Vital Signs: Initial Vital Signs Temp 97.8 F 12/03/18 15:25 Pulse 86 12/03/18 15:25 Resp 17 12/03/18 15:25 BP 122/73 12/03/18 15:25 Pulse Ox 99 12/03/18 15:25 Vital Signs Reviewed: Yes Diagnostics - Laboratory Diagnostic Studies Completed/Ordered: Rapid strep positive. Throat Pain/Nasal Course/Dx - Course Course Of Treatment: 28-year-old female presents with 2 day history of sore throat. States her son was diagnosed 4 days ago with strep throat. Denies ear pain, nasal congestion, postnasal drip, dysphagia, cough, chest pain, shortness of breath, abdominal pain, nausea, vomiting, or diarrhea. Afebrile. Vital signs stable. Exam reveals an adult female in no acute distress with pharyngeal erythema, 2+ was with exudate, mild anterior cervical lymphadenopathy , and otherwise unremarkable exam. Rapid strep test was positive. Patient notified of results. Will treat with penicillin VK 500 mg twice a day 10 days as well as symptomatic treatment. Just follow up with her primary care provider in 7 days if symptoms do not improve. Anticipatory guidance and warning symptoms reviewed with the patient. Verbalizes understanding and agrees with plan of care. - Differential Dx/Diagnosis Differential Diagnosis/HQI/PQRI: Pharyngitis, Sinusitis, Tonsillitis, URI Provider Diagnosis: Strep pharyngitis Discharge - Sign-Out/Discharge Documenting (check all that apply): Patient Departure All imaging exams completed and their final reports reviewed: No Studies - Discharge Plan Condition: Stable Disposition: HOME Prescriptions: Penicillin VK 500 MG TAB(NF) [Penicillin VK 500 mg Tab] 500 mg PO BID #20 tab Patient Education Materials: Strep Throat (ED) Referrals: Esther Bah MD [Primary Care Provider] - If Needed Additional Instructions: Your rapid strep test in the clinic today was positive. We will start you on an antibiotic to treat the infection. Start penicillin VK 500 mg 1 tab twice a day for 10 days. Be sure to complete the entire course even if feeling better. After you have been on antibiotics for 3 days, throw out your toothbrush and replace with a new one to prevent reinfection. Drink plenty of fluids to avoid dehydration especially if you are running any fever. Use salt water gargles several times a day. Take over the counter acetaminophen (Tylenol) or ibuprofen (Advil, Motrin) according to directions as needed for pain or fever. You may also use Chloraseptic spray or Cepacol lonzenges according to directions which contain a numbing medication and can provide some temporary relief from your sore throat. Return here or follow up with your primary care provider if symptoms persist for more than 10 days or if you have any worsening of symptoms. Seek immediate medical attention in the emergency room if you have fever greater than 100.5 F despite taking acetaminophen or ibuprofen, are unable to swallow or develop drooling, are unable to open your mouth fully, are unable to eat or drink, have pain that is not relieved with over the counter pain medication, or have any difficulty breathing. - Billing Disposition and Condition Condition: STABLE Disposition: Home
== END 2018-12-03 15:45 | disposition home or self-care (01) ==
LOC: UCCORT 15:12
DX: J02.0 Streptococcal pharyngitis (principal); Z88.8 Allergy status to other drugs, medicaments and biological substances
CPT/HCPCS: 87651; 99212; G0463

== ENCOUNTER 2019-02-26 07:30 | Emergency (ER) | payer OTHER ==
--- OUTSIDE RECORDS SUMMARY | 2019-02-26 07:36 | XMS REPORT | Continuity of Care Document ---
:1990 External Reference #:[id number] Author Name Mitch Ken CNM Address [address] [place] [address] Care Team Providers Name Role Phone Leonor Goodman NP Primary Care Physician Unavailable Payers Date Identification Numbers Payment Provider Subscriber Policy Number: [id number] [facility] Bernabe Wharton PayID: [id number] [address] [place] [address] Policy Number: [id number] Medicaid [place] Bernabe Wharton PayID: [id number] [address] [place] [address] Policy Number: [id number] [employer] [facility] Carla Alcantara PayID: [id number] [address] [address] Expires: 2018 Policy Number: [id number] [employer] [facility] Bernabe [place] PayID: [id number] [address] [address] Advance Directives Description No Information Available Problems Resolved Problems Provider Date Primigravida Mitch Ken CNM Onset: 07/14/2014 Resolved: 06/12/2016 H/O: depression Mitch Ken CNM Onset: 07/14/2014 Resolved: 06/12/2016 Multigravida Sheila Adame CNM Onset: 06/12/2016 Resolved: 01/14/2017 Family History Date Family Member(s) Observation Comments Father Hypertension Father Bipolar Disorder Mother Hypertension Mother Hyperlipidemia Children 2 First Son A&W First Daughter A&W First Brother A&W Second Brother A&W Third Brother A&W half brother First Sister A&W half sister ? 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 No further problems Allergies, Adverse Reactions, Alerts Active Allergies Reaction Severity Comments Date Zoloft rash 04/22/2018 Inactive Allergies NKDA 07/14/2014 Medications Active Medications SIG Qnty Indications Ordering Provider Date No Active Medications Unknown 02/05/2019 History Medications Sprintec 28 1 by mouth every day 84tabs Mitch Ken, 11/04/2018 - CNM 02/05/2019 0.25-35mg-mcg Tablets No Active Unknown 04/22/2018 - Medications 11/04/2018 Sertraline HCL for initiation take 30tabs Mitch Ken, 07/10/2017 - 50mg 1/2 tab by mouth x 6 CNM 08/08/2017 Tablets days then take 1 tab by mouth every day Oxycodone-Acetaminop 1 by mouth q4hr 30tabs Z01.818 Carl Spence 04/01/2017 - caleb Arteaga M.D. 07/09/2017 5-325mg Tablets Ibuprofen take one tab by 30tabs Z01.818 Carl Spence 04/01/2017 - 600mg mouth every 6 hours Kendall Arteaga 08/08/2017 Tablets as needed pain No Active Unknown 03/28/2017 - Medications 03/28/2017 Sertraline HCL 1 by mouth every day 30tabs Mitch Ken, 03/28/2017 - 100mg CNM 07/10/2017 Tablets Ativan take 1 to 2 tablets 15tabs Mitch Ken, 03/28/2017 - 0.5mg Tablets by mouth every 4 CNM 04/22/2018 hours as needed for anxiety (max of 6 per day) Sertraline HCL 1 tab by mouth every 30tabs O90.6 Mitch Ken, 03/18/2017 - 50mg day [facility] 03/28/2017 Tablets Sertraline HCL for initiation take 30tabs Z39.2 Mitch Ken, 02/17/2017 - 50mg 1/2 tab by mouth x 6 CN 03/18/2017 Tablets days then take 1 tab by mouth every day Ferrousul 1 tab by mouth twice 90tabs Lynette 10/16/2016 - 325(65Fe) a day (take with Shakira, [facility] 02/26/2017 mg Tablets orange juice or vit c tab) Sprintec 28 1 by mouth every day 84tabs Carl Spence 08/29/2015 - Kendall Arteaga 06/12/2016 0.25-35mg-mcg Tablets Depo-Provera 1 intramuscular 1units Lynette 03/09/2015 - 150mg/ml injection every Shakira, [facility] 08/28/2015 Suspension 3months for contraception Zantac 75 1 tab by mouth every 30tabs Lynette 10/11/2014 - 75mg day as needed for Shakira [facility] 02/03/2015 Tablets heartburn No Active Unknown 07/14/2014 - Medications 07/14/2014 Vitamin Unknown - 07/14/2014 Plus Dha ok to substitute pnv 100tabs Unknown - + dha covered by pt 03/09/2015 7-0.4-100mg Tablets insurance 1 daily by mouth Medications Administered in Office Medication SIG Qnty Indications Ordering Provider Date PT SCRN Tbco Id as Non User Mitch Ken CNM 02/05/2019 Injection PT SCRN Tbco Id as Non User Mitch Ken CNM 11/04/2018 Injection PT SCRN Tbco Id as Non User Mitch Ken CNM 04/22/2018 Injection Immunizations CPT Code Status Date Vaccine Lot # [id number] Given 10/29/2016 Tetnus, Diptheria Toxoids And Acellular Pertussis, [id number] PT > 7Yrs Old [id number] Given 11/03/2014 Tetnus, Diptheria Toxoids And Acellular Pertussis, [id number] PT > 7Yrs Old [address]13 Given 07/14/2014 Influenza Virus Vaccine Split Virus Use For [id number] Individual 3Yr Older Vital Signs Date Vital Result Comment 02/05/2019 10:59am BP Systolic 118 mmHg BP Diastolic 74 mmHg Height 63 inches 5'3" Weight 146.00 lb BMI (Body Mass Index) 25.9 kg/m2 Last Menstrual Period 5845332 2 Parity 2 11/04/2018 12:53pm BP Systolic 114 mmHg BP Diastolic 72 mmHg Height 63 inches 5'3" Weight 144.00 lb BMI (Body Mass Index) 25.5 kg/m2 Last Menstrual Period 7931880 2 Parity 2 04/22/2018 1:56pm BP Systolic 110 mmHg BP Diastolic 74 mmHg Height 63 inches 5'3" Weight 150.00 lb BMI (Body Mass Index) 26.6 kg/m2 Last Menstrual Period 2379924 2 Parity 2 08/08/2017 8:13am BP Systolic 114 mmHg BP Diastolic 70 mmHg Height 63 inches 5'3" Weight 153.00 lb BMI (Body Mass Index) 27.1 kg/m2 Last Menstrual Period 5406346 2 Parity 2 07/10/2017 2:22pm BP Systolic 110 mmHg BP Diastolic 68 mmHg Height 63 inches 5'3" Weight 150.00 lb BMI (Body Mass Index) 26.6 kg/m2 Last Menstrual Period 7614418 2 Parity 2 04/10/2017 9:52am BP Systolic 120 mmHg BP Diastolic 76 mmHg Body Temperature 98.2 F Height 63 inches 5'3" Weight 144.00 lb BMI (Body Mass Index) 25.5 kg/m2 Last Menstrual Period 5289926 2 Parity 2 04/01/2017 1:00pm BP Systolic 120 mmHg BP Diastolic 76 mmHg Body Temperature 98.2 F Oral Heart Rate 60 /min Respiratory Rate 20 /min Height 63 inches 5'3" Weight 146.00 lb BMI (Body Mass Index) 25.9 kg/m2 Last Menstrual Period 6536047 2 Parity 2 03/18/2017 10:05am BP Systolic 114 mmHg BP Diastolic 64 mmHg Height 63 inches 5'3" Weight 147.00 lb BMI (Body Mass Index) 26.0 kg/m2 Last Menstrual Period 7067075 2 Parity 2 02/26/2017 11:12am BP Systolic 122 mmHg BP Diastolic 66 mmHg Height 63 inches 5'3" Weight 146.00 lb BMI (Body Mass Index) 25.9 kg/m2 Last Menstrual Period 0956878 2 Parity 2 02/17/2017 2:57pm BP Systolic 112 mmHg BP Diastolic 70 mmHg Height 63 inches 5'3" Weight 150.00 lb BMI (Body Mass Index) 26.6 kg/m2 Last Menstrual Period 8105329 2 Parity 2 06/12/2016 1:33pm BP Systolic 120 mmHg BP Diastolic 64 mmHg Height 63 inches 5'3" Weight 145.00 lb BMI (Body Mass Index) 25.7 kg/m2 Last Menstrual Period 8189148 2 Parity 1 08/29/2015 1:10pm BP Systolic 122 mmHg BP Diastolic 76 mmHg Height 63 inches 5'3" Weight 155.00 lb BMI (Body Mass Index) 27.5 kg/m2 Last Menstrual Period 9416307 1 Parity 1 03/09/2015 10:08am BP Systolic 112 mmHg BP Diastolic 72 mmHg Height 63 inches 5'3" Weight 152.00 lb BMI (Body Mass Index) 26.9 kg/m2 Last Menstrual Period 6390007 1 Parity 1 02/03/2015 12:54pm BP Systolic 122 mmHg BP Diastolic 72 mmHg Body Temperature 99.6 F Height 63 inches 5'3" Weight 151.00 lb BMI (Body Mass Index) 26.7 kg/m2 Last Menstrual Period 3224724 1 Parity 1 07/14/2014 7:47am BP Systolic 112 mmHg BP Diastolic 66 mmHg Height 63 inches 5'3" Weight 143.00 lb BMI (Body Mass Index) 25.3 kg/m2 Last Menstrual Period 1497651 1 Parity 0 Results Test Date Facility Test Result H/L Range Note Laboratory test 02/05/2019 [facility] Gardnerella/Ye <pending> [place] [address] ast: Vaginal [phone] Dna Laboratory test 04/22/2018 [facility] Cytology SEE RESULT 1 [place] [address] BELOW [phone] CBC With No Diff 07/10/2017 [facility] White Blood 7.3 10^3/uL N 3.5-10.8 [place] [address] Count [phone] Red Blood Count 4.76 10^6/uL N 4.0-5.4 Hemoglobin 12.5 g/dL N 12.0-16.0 Hematocrit 40 % N 35-47 Mean Corpuscular Volume 84 fL N 80-97 Mean Corpuscular Hemoglobin 26 pg Low 27-31 Mean Corpuscular HGB Conc 31 g/dL N 31-36 Red Cell Distribution Width 17 % High 10.5-15 Platelet Count 251 10^3/uL N 150-450 Mean Platelet Volume 9 um3 N 7.4-10.4 Laboratory test 07/10/2017 [facility] HCG 0.85 mIU/mL N 2 [place] [address] [phone] Prolactin 5.8 ng/mL N 1.0-25.0 3 TSH 3.20 mcIU/mL N 0.34-5.60 4 T4 Free 0.68 ng/dL N 0.61-1.12 5 Laboratory test 04/04/2017 [facility] Negative N Negative 6 [place] [address] (HCG) Urine [phone] CBC Auto Diff 04/01/2017 [facility] White Blood 6.9 10^3/uL N 3.5-10.8 [place] [address] Count [phone] Red Blood Count 4.66 10^6/uL N 4.0-5.4 [...] Cells % 0.1 N Laboratory test 12/10/2016 [facility] Group B Strep SEE RESULT 7, 8 [place] [address] Culture Screen BELOW [phone] Laboratory test 10/15/2016 [facility] Glucose 1 HR 79 mg/dL N 70-16 9 [place] [address] Post Prandial 0 [phone] CBC With No Diff 10/15/2016 [facility] White Blood 8.3 10^3/uL N 3.5-1 [place] [address] Count 0.8 [phone] Red Blood Count 3.50 10^6/uL Low 4.0-5.4 Hemoglobin 10.5 g/dL Low 12.0-16.0 Hematocrit 31 % Low 35-47 Mean Corpuscular Volume 89 fL N 80-97 Mean Corpuscular Hemoglobin 30 pg N 27-31 Mean Corpuscular HGB Conc 34 g/dL N 31-36 Red Cell Distribution Width 13 % N 10.5-15 Platelet Count 183 10^3/uL N 150-450 Mean Platelet Volume 10 um3 N 7.4-10.4 Urine Culture And 06/12/2016 [facility] Urine Culture SEE RESULT 10 [place] [address] BELOW [phone] GC/Chlamydia Dna 06/12/2016 [facility] Chlamydia Negative [place] [address] trachomatis [phone] Rna Neisseria gonorrhoeae (GC) Rna Negative N Negative Laboratory test 06/12/2016 [facility] Cytology SEE RESULT 11 [place] [address] BELOW [phone] Parvovirus B19 06/12/2016 [facility] Parvovirus 5.01 index Abnormal <0.9 12 [place] [address] (B19) IgG 0 [phone] Antibody Parvovirus (B19) IgM Antibody 0.22 index N <0.90 13 Parvovirus Interpretation See Comment N 14 Lead 06/12/2016 [facility] Lead <1.0 g/dL N 0.0-4.9 15 [place] [address] [phone] HIV 1/2 AB 06/12/2016 [facility] HIV 1 2 Nonreactive N Nonreactive 16 [place] [address] Antibody [phone] PNL 06/12/2016 [facility] Rubella Immune IU/mL [place] [address] Screen [phone] Hemoglobin A1c 5.2 % N Less than 6.0 17 Hepatitis B Surface Ag Nonreactive N Nonreactive 18 Syphillis Igg W/Reflex RPR Nonreactive N Nonreactive 19 CBC With No 06/12/2016 [facility] White Blood 7.3 10^3/uL N 3.5-10.8 [place] [address] Count [phone] Red Blood Count 4.39 10^6/uL N 4.0-5.4 [...] um3 N 7.4-10.4 Type And Screen 06/12/2016 [facility] Patient [place] [address] Type [phone] Antibody Screen NEGATIVE N Laboratory test 12/29/2014 [facility] Group B Strep (SEE NOTE) 20 [place] [address] Culture Screen [phone] Urinalysis Profile 12/13/2014 [facility] Urine Color Yellow N [place], [place] [address] [phone] Urine Appearance Cloudy N Urine Specific Drummond 1.021 N 1.010-1.030 Urine pH 6.0 N [...] Urine Squamous Epithelial Cell Present Abnormal Absent Urine Culture And 12/13/2014 [facility] Urine Culture (SEE NOTE ) 21 [place] [address] [phone] Laboratory test 11/03/2014 [facility] Glucose 1 HR 81 mg/dL N 70-16 [place] [address] Post Prandial 0 [phone] CBC With No Diff 11/03/2014 [facility] White Blood 8.3 10^3/uL N 4.8-1 [place] [address] Count 0.8 [phone] Red Blood Count 3.53 10^6/uL Low 4.0-5.4 Hemoglobin 11.0 g/dL Low 12.0-16.0 Hematocrit 33 % Low 35-47 Mean Corpuscular Volume 92 fL N 80-97 Mean Corpuscular Hemoglobin 31 pg N 27-31 Mean Corpuscular HGB Conc 34 g/dL N 31-36 Red Cell Distribution Width 13 % N 10.5-15 Platelet Count 184 10^3/uL N 150-450 Mean Platelet Volume 10 um3 N 7.4-10.4 GC/Chlamydia Dna 08/11/2014 [facility] GC/Chlamydia (SEE NOTE) 22 [place] [address] Rna [phone] Urine Culture And 07/14/2014 [facility] Urine Culture (SEE NOTE ) 23 [place] [address] [phone] Toxoplasma Igg & 07/14/2014 [facility] Toxoplasma IgG Negative N Negative 24 [place] [address] Antibody [phone] Toxoplasma IgG Antibody Index <3 IU/mL N 25 Toxoplasma IgM Antibody Negative N Negative Toxoplasma IgM Antibody Index <0.55 threshold N 26 HIV 1/2 AB 07/14/2014 [facility] HIV 1 2 Nonreactive N Nonreactive 27 [place] [address] Antibody [phone] Type And 07/14/2014 [facility] Patient [place] [address] Blood Type [phone] Antibody Screen NEGATIVE N CBC With No 07/14/2014 [facility] White Blood 8.6 10^3/uL N 4.8-10.8 [place] [address] Count [phone] Red Blood Count 4.37 10^6/uL N 4.0-5.4 Hemoglobin 13.5 g/dL N 12.0-16.0 Hematocrit 39 % N 35-47 Mean Corpuscular Volume 90 fL N 80-97 Mean Corpuscular Hemoglobin 31 pg N 27-31 Mean Corpuscular HGB Conc 35 g/dL N 31-36 Red Cell Distribution Width 14 % N 10.5-15 Platelet Count 223 10^3/uL N 150-450 Mean Platelet Volume 9 um3 N 7.4-10.4 RPR 07/14/2014 [facility] Syphilis IgG TNP N Nonreactive 28 [place], [place] [address]15 [phone] RPR Nonreactive N Nonreactive 29 RPR Titer TNP N Pediatric/Maternal YES N PNL No 07/14/2014 [facility] Rubella Screen Immune IU/ mL N Immune Urine [place], [place] [address]707 [phone] Hemoglobin A1c 5.0 % N Less than 6.0 30 Hepatitis B Surface Antigen Nonreactive N Nonreactive 31 1 SEE RESULT BELOW Name: BERNABE WHARTON : [address]: Mitch Ken [facility] Acct: [id number] Unit: [id number] AGE: 27 Location: [facility] Re04/22/18 SEX: F Status: REG REF SPEC: [id number] CARLOS: 04/22/18-[address] [facility] [address]: Mitch Ken [facility] REQ: [id number] RECD: 04/23/18-1230 STATUS: SOUT _ ORDERED: TP IMAGE ANALYS COMMENTS: [id number] Negative for Intraepithelial lesion or Malignancy A. [...] was evaluated with the assistance of the INDOM Test Imaging System. Due to cytologic findings at the girls swimming coach microscope, comprehensive manual rescreening by a Information Lead may be required. The Pap Smear is [...] years. END OF REPORT DEPARTMENT OF PATHOLOGY, [address] [place] [address] Maikel Trevino M.D. Director [facility] # [id number] 2 <5.0 Negative 5.0 - 25.0 Indeterminate (Repeat testing recommended after 72 hours) >25.0 Positive Perimenopausal women can display HCG levels of up to 20 mIU/mL 3 [id number] 4 [id number] 5 [id number] 6 If is still suspected, please repeat test after 48 to 72 hours. This test detects intact HCG only and is indicated for the early detection of . 7 [id number] 8 SEE RESULT BELOW Name: BERNABE ALCANTARA : [address]: Zenobia Adame CNM Acct: [id number] Unit: [id number] AGE: 26 Location: [facility] Re12/10/16 SEX: F Status: REG REF SPEC: [id number] CARLOS: 12/10/[address] [facility] [address]: Zenobia UP REQ: [id number] RECD: 12/10/16 STATUS: COMP _ SOURCE: CER/VAG/RE SPDESC: ORDERED: Grp B Strp Scrn COMMENTS: [id number] QUERIES: Is Patient Penicillin Allergic? N Is patient penicillin allergic and/or sensitivities needed? N Provider Requisition # [id number] Procedure Result Reported Site Group B Strep Culture Screen Final 12/12/16- 1347 ML Group B Strep Screen Negative * ML - MAIN LAB ([facility]) . END OF REPORT * ML=Testing performed at Main Lab DEPARTMENT OF PATHOLOGY, [address] [place] [address] Maikel Trevino M.D. Director [facility] # [id number] 9 [id number] 10 SEE RESULT BELOW Name: BERNABE ALCANTARA : [address]: Zenobia UP Acct: [id number] Unit: [id number] AGE: 25 Location: [facility] Re06/12/16 SEX: F Status: REG REF SPEC: [id number] CARLOS: 06/12/16-[address]: Zenobia Adame [facility] REQ: [id number] RECD: 06/12/16 STATUS: COMP _ SOURCE: URINE SPDESC: ORDERED: Urine Culture COMMENTS: [id number] Procedure Result Reported Site Urine Culture Final 06/13/16- 1610 ML No Growth (<1,000 CFU/mL) * ML - MAIN LAB ([facility]) . END OF REPORT * ML=Testing performed at Main Lab DEPARTMENT OF PATHOLOGY, [address] [place] [address] Maikel Trevino M.D. Director [facility] # [id number] 11 SEE RESULT BELOW Name: BERNABE ALCANTARA : [address]: Zenobia Adame CNM Acct: [id number] Unit: [id number] AGE: 25 Location: [facility] Re06/12/16 SEX: F Status: REG REF SPEC: [id number] CARLOS: 06/12/16-[address] [facility] [address]: Zenobia Adame [facility] REQ: [id number] RECD: 06/12/16 STATUS: SOUT _ ORDERED: IMAGE ANALYSIS COMMENTS: [id number] FINAL DIAGNOSIS Negative for Intraepithelial lesion or Malignancy A. Ectocervical/Endocervical Specimen Adequacy: Satisfactory of evaluation Transformation zone component identified Patient Information: HPV: Thin Layer Pap Test w/reflex to high risk HPV RNA testing when ASCUS Actual Specimen Date: 06/12/16 Last Menstrual Date: 04/07/16 Spec Date if unknown: never ?: Y Signed (signature on file) SILVIA Bundy (ASCP) 06/13 1311 This Pap test was evaluated with the assistance of the ThinPrep Test Imaging System. Due to cytologic findings at the girls swimming coach microscope, comprehensive manual rescreening by a Information Lead may be required. The Pap Smear is [...] performed at Main Lab DEPARTMENT OF PATHOLOGY, [address] [place] [address] Maikel Trevino M.D. Director [facility] # [id number] 12 Positive 13 Negative 14 RESULT: Results suggest past infection. Test Performed by: [place] [address] Vice President Medical Affairs: James Moreno II, M.D., Ph.D. 15 ADDITIONAL INFORMATION Testing performed by Inductively Coupled Plasma-Mass Spectrometry (ICP-MS). This test was developed and its performance characteristics determined by [facility] in a manner consistent with CLIA requirements. This test has not been cleared or approved by the U.S. Food and Drug Administration. 16 It is recognized that currently available assays [...] 95% confidence interval of 99.78 to 99.96%. 17 Therapeutic target for the treatment of diabetes Mellitus patients is <7% HBA1C, and in selective patients <6.0%.Please refer to Citizen [place] Diabetes Association Diabetic care guidelines for further information. 18 [facility] [address] 19 Warning: A positive result is not useful for establishing a diagnosis of syphilis. In most situations, such a result may reflect a prior treated infection; a negative result can exclude a diagnosis of syphilis except for incubating or early primary disease. 20 RUN DATE: 12/31/14 [facility] LAB LIVE PAGE 1 RUN TIME: [address] [place] [address] Specimen Inquiry Name: BERNABE ALCANTARA : [address]: Lynette Rosenberg [facility] Acct: [id number] Unit: [id number] AGE: 24 Location: [facility] Re12/29/14 SEX: F Status: REG REF SPEC: [id number] CARLOS: 12/29/[address]: Lynette Rosenberg [facility] REQ: [id number] RECD: 12/29/14 STATUS: COMP _ SOURCE: CER/VAG/RE SPDESC: ORDERED: Grp B Strp Scrn QUERIES: Is Patient Penicillin Allergic? N Is patient penicillin allergic and/or sensitivities needed? N Provider Requisition # [id number] Procedure Result Verified Site Group B Strep Culture Screen Final 12/31/14- 0948 ML Group B Strep Screen Negative * ML - MAIN LAB ([facility]) . Maikel Gibson M.D. END OF REPORT * ML=Testing performed at Main Lab DEPARTMENT OF PATHOLOGY, [address] [place] [address] Maikel Trevino M.D. Director [facility] # [id number] 21 RUN DATE: 12/15/14 [facility] LAB LIVE PAGE 1 RUN TIME: [address] [place] [address] Specimen Inquiry Name: BERNABE ALCANTARA : [address]: Lynette Rosenberg [facility] Acct: [id number] Unit: [id number] AGE: 24 Location: [facility] Re12/13/14 SEX: F Status: DEP REF SPEC: [id number] CARLOS: 12/13/14-[address]: Lynette UP REQ: [id number] RECD: 12/13/14 STATUS: IVELISSE JULIAN DR: Esther Bah MD _ SOURCE: URINE SPDESC: ORDERED: Urine Culture Procedure Result Verified Site Urine Culture Final 12/15/14- 1037 L Organism 1 NORMAL JOVANA [place] Count 10-25,000 (Moderate) CFU/ML END OF REPORT * ML=Testing performed at Main Lab DEPARTMENT OF PATHOLOGY, [facility] [address] [place], [place] [address] Maikel Trevino M.D. Director [facility] # [id number] 22 RUN DATE: 08/12/14 [facility] LAB LIVE PAGE 1 RUN TIME: 14[address] [facility] [address] [place], [place] [address] Specimen Inquiry Name: BERNABE ALCANTARA : [address]: Lynette Rosenberg [facility] Acct: [id number] Unit: [id number] AGE: 23 Location: [facility] Re08/11/14 SEX: F Status: REG REF SPEC: [id number] CARLOS: 08/11/[address]: Lynette Rosenberg [facility] REQ: [id number] RECD: 08/11/14-1199 STATUS: COMP _ SOURCE: URINE SPDESC: ORDERED: GC/Chlam RNA QUERIES: Medent Number [id number] Procedure Result Verified Site Chlamydia Trachomatis RNA [...] result may have adverse psychosocial impact, the CDC recommends retesting by a method using an alternate technology. Therapeutic failure or success cannot be determined with the Aptima Combo 2 Assay since nucleic acid may persist following appropriate antimicrobial therapy. Results from the Aptima Combo 2 Assay should be interpreted in conjunction with other laboratory and clinical data available to the clinican. CONTINUED ON NEXT PAGE * ML=Testing performed at [facility] DEPARTMENT OF PATHOLOGY, [address] [place] [address] Maikel Trevino M.D. Director [facility] # [id number] RUN DATE: 08/12/14 [facility] LAB LIVE PAGE 2 RUN TIME: [address] [place] [address] Specimen Inquiry Patient: BERNABE ALCANTARA [id number] (Continued) Specimen: [id number] Collected: 08/11/14 Received: 08/11/14-1199 (Continued) Procedure Result Verified Site GC (N. gonorrhoeae) RNA Final (continued) 08/12/14- 1423 Performance characteristics for detecting C. trachomatis and N. gonorrhoeae are derived from high prevalence populations. Positive results in low prevalence populations should be interpreted carefully with the understanding that the likelihood of a false positive may be higher than a true positive. END OF REPORT * ML=Testing performed at Main Lab DEPARTMENT OF PATHOLOGY, [facility] [address] [place], [place] [address] Maikel Trevino M.D. Director [facility] # [id number] 23 RUN DATE: 07/16/14 [facility] LAB LIVE PAGE 1 RUN TIME: 10[address] [facility] [address] [place], [place] [address] Specimen Inquiry Name: BERNABE ALCANTARA : [address]: Mitch Ken [facility] Acct: [id number] Unit: [id number] AGE: 23 [facility] [facility] Re07/14/14 SEX: F Status: REG REF SPEC: [id number] CARLOS: 07/14/14 [facility] DR: Mitch Ken [facility] REQ: [id number] RECD: 07/14/14 STATUS: COMP _ SOURCE: URINE SPDESC: ORDERED: Urine Culture QUERIES: Medent Number [id number] Urine Source: Random Procedure Result Verified Site Urine Culture Final 07/16/14- 1027 ML No Growth Day 2 (<1,000 CFU/mL) END OF REPORT * ML=Testing performed at Main Lab DEPARTMENT OF PATHOLOGY, [address] [place] [address] Maikel Trevino M.D. Director [facility] # [id number] 24 SCREENING NOS 25 REFERENCE VALUE <=9 IU/mL (Negative) 10-11 IU/mL (Equivocal) >=12 IU/mL (Positive) Test Performed by: [facility] - [address] [address] Vice President Medical Affairs: Justice Bourgeois M.D. 26 REFERENCE VALUE <0.55 (Negative) 0.55 to <0.65 (Equivocal) >=0.65 (Positive) 27 It is recognized that currently available assays [...] 95% confidence interval of 99.78 to 99.96%. 28 --- 07/15/14 1046 --- Syphilis IgG previously reported as: Nonreactive Warning: A positive result is not useful for establishing a diagnosis of syphilis. In most situations, such a result may reflect a prior treated infection; a negative result can exclude a diagnosis of syphilis except for incubating or early primary disease. 29 --- 07/15/14 1047 --- RPR previously reported as: Test not performed --- 07/15/14 1134 --- RPR previously reported as: --- 07/15/14 1047 --- RPR previously reported as: Test not performed 30 Therapeutic target for the treatment of diabetes Mellitus patients is <7% HBA1C, and in selective patients <6.0%.Please refer to Citizen Of [place] Diabetes Association Diabetic care guidelines for further information. 31 YES Procedures Date Code Description Status 08/08/2017 94017 Echography Transvaginal Completed 04/04/2017 35928 Laparoscopy W/Wo Transection W/Fulguration Of Oviducts Completed 01/14/2017 78045 Obstetric Care Routine Completed 01/05/2017 65379 Non-Stress Test Completed 12/10/2016 25564 Echography Uterus Limited Completed 11/25/2016 17844 Non-Stress Test Completed 08/26/2016 87293 Echography Uterus Complete Completed 06/12/2016 45009 OB Ultrasound First Trimester Completed 06/02/2015 33463 Injection Intramuscular Or Subcutaneous Completed 03/10/2015 98928 Injection Intramuscular Or Subcutaneous Completed 01/29/2015 76557 Obstetric Care Routine Completed 01/29/2015 25173 Obstetric Care Routine Completed 01/24/2015 16531 Non-Stress Test Completed 12/13/2014 17856 Non-Stress Test Completed 11/03/2014 49919 Injection Intramuscular Or Subcutaneous Completed 09/12/2014 48145 Echography Uterus Complete Completed 07/14/2014 03825 OB Ultrasound First Trimester Completed Encounters Type Date Location Provider Dx Diagnosis Office Visit 02/05/2019 11:20a [facility] Office Mitch Ken CNM N76.0 Acute vaginitis Z11.3 Encntr screen for infections w sexl mode of transmiss Office Visit 11/04/2018 1:00p [facility] Office Mitch Ken Z30.8 Encounter for other CNM contraceptive management Office Visit 04/22/2018 2:20p [facility] Office Mitch Ken Z01.419 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 CNM (general) (routine) w/o abn findings R35.0 Frequency of micturition N39.3 Stress incontinence (female) (male) Office Visit 08/08/2017 8:20a [facility] Office Mitch Ken N92.6 Irregular CNM menstruation, unspecified Office Visit 07/10/2017 2:40p [facility] Office Mitch Ken O90.6 mood CNM disturbance N92.6 Irregular menstruation, unspecified Office Visit 04/01/2017 1:00p [facility] Office Carl Spence Z01.818 Encounter for other Kendall Arteaga preprocedural examination Office Visit 03/18/2017 10:20a [facility] Office Mitch Ken O90.6 mood CNM disturbance Office Visit 02/26/2017 11:20a [facility] Office Carl Spence Z30.2 Encounter for Kendall Arteaga sterilization Office Visit 08/29/2015 1:30p [facility] Office Melyssa Jose Cruz, Z30.9 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 Will follow-up per results. Discussed possibility that this is normal vaginal discharge. Will continue to montior. Follow-up PRN or for annual care in 04/20193616L99.3 Encounter for screening for infections with a predominantly sexual mode of transmissionComments:Declined HIV/HepB&C/RPR/ HSV
[2019-02-26 07:38] VITALS: BP 120/78
--- NOTE | 2019-02-26 07:42 | UC ---
General HPI - HPI Summary HPI Summary: Right shoulder/neck pain started 2 weeks ago. 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 Most stiff in the morning. Hurts worse with certain movements. Denies numbness or tingling. Saw PMD on Friday who told her to apply heat. Has been doing so without much relief. No imaging done 2 weeks R upper back / R lower neck pain. Progressively worse. Seen by PCP on Friday, advised nsaid rest. No better. 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 Woke up this am in pain, prompting medical eval. No p/d/w. No f/c. No known hx neck / back deformity. No sob / cp / palpitations. No GI issues. No b/b issues. Took ibuprofen 600mg po x 1 yesterday am, helped a little at the time. But pain returned. - History of Current Complaint Chief Complaint: UCUpperExtremity Stated Complaint: RT SHOULDER PAIN Time Seen by Provider: 02/26/19 07:41 Hx Last Menstrual Period: 01/31/19 Pain Intensity: 5 - Allergy/Home Medications Allergies/Adverse Reactions: Allergies Allergy/AdvReac Type Severity Reaction Status Date / Time sertraline [From Zoloft] Allergy Rash Verified 02/26/19 07:38 Home Medications: Home Medications Ibuprofen TAB* [Motrin TAB* 600 MG] 600 mg PO Q6H PRN 02/26/19 [History Confirmed 02/26/19] PMH/Surg Hx/FS Hx/Imm Hx Previously Healthy: Yes Other History Of: Negative For: HIV, Hepatitis B, Hepatitis C, Anticoagulant Therapy - Surgical History Surgical History: Yes Surgery Procedure, Year, and Place: TUBAL LIGATION - Family History Known Family History: Positive: Hypertension, Diabetes Negative: Cardiac Disease - Social History Alcohol Use: Occasionally Alcohol Amount: 1 or 2 per day Substance Use Type: None Smoking Status (MU): Never Smoked Tobacco Have You Smoked in the Last Year: No - Immunization History Most Recent Influenza Vaccination: 07/28 Most Recent Tetanus Shot: 11/03/14 Most Recent Pneumonia Vaccination: none Review of Systems All Other Systems Reviewed And Are Negative: Yes Constitutional: Positive: Negative Skin: Positive: Negative Eyes: Positive: Negative ENT: Positive: Negative Respiratory: Positive: Negative Cardiovascular: Positive: Negative Gastrointestinal: Positive: Negative Genitourinary: Positive: Negative Motor: Positive: Other - see hpi Neurovascular: Positive: Other - see hpi Musculoskeletal: Positive: Other: - see hpi Neurological: Positive: Other - see hpi Psychological: Positive: Other - see hpi Is Patient Immunocompromised?: No Physical Exam Triage Information Reviewed: Yes Appearance: Well-Appearing, Well-Nourished Vital Signs: Initial Vital Signs Temp 98.6 F 02/26/19 07:35 Pulse 88 02/26/19 07:35 Resp 16 02/26/19 07:35 BP 120/78 02/26/19 07:35 Pulse Ox 100 02/26/19 07:35 Vital Signs Reviewed: Yes Eye Exam: Normal ENT Exam: Normal Neck exam: Other Respiratory Exam: Normal Respiratory: Positive: Chest non-tender, Lungs clear, Normal breath sounds, No respiratory distress, No accessory muscle use Cardiovascular Exam: Normal Cardiovascular: Positive: RRR, No Murmur, Pulses Normal, Brisk Capillary Refill Abdominal Exam: Normal Abdomen Description: Positive: Nontender Musculoskeletal Exam: Other - Tender and spasm R lower lat neck and upper back R lat thoracic, no point bony tenderness. FROM BUE. Stength good. Distal sens present. Ax n sent present LT. Painful to flex neck and painful to rotate neck to the right. No crepitus appreciated. Trachea midline. Neurological Exam: Normal Psychological Exam: Normal - conversing easily and appropriately Skin Exam: Normal - no visible or reported rash Course/Dx - Course Course Of Treatment: XRays - details noted in meditech C spine - straightn lordosis T spine - mild scoliosis Reviewed reports with pt. Reviewed coa /tx plan. Questions answered as posed to the best of my ability. Declines soft collar. - Diagnoses Provider Diagnosis: Upper back strain, Neck strain, Scoliosis Discharge - Sign-Out/Discharge Documenting (check all that apply): Patient Departure All imaging exams completed and their final reports reviewed: Yes - Discharge Plan Condition: Stable Disposition: HOME Prescriptions: Cyclobenzaprine TAB* [Flexeril 10 MG TAB*] 10 mg PO TID PRN #21 tab PRN Reason: Spasms Ibuprofen TAB* [Motrin TAB* 600 MG] 600 mg PO Q8H PRN #30 tab PRN Reason: Pain Patient Education Materials: Cervical Strain (ED), Scoliosis in Children (DC), Thoracic Back Strain (ED) Forms: *Work Release Referrals: Esther Bah MD [Primary Care Provider] - Additional Instructions: Follow up with your primary care physician next week if possible. Seek medical attention for worse or new pain in the meantime. - Billing Disposition and Condition Condition: STABLE Disposition: Home
== END 2019-02-26 08:58 | disposition home or self-care (01) ==
LOC: UCCORT 07:30
DX: S29.012A Strain of muscle and tendon of back wall of thorax, initial encounter (principal); S16.1XXA Strain of muscle, fascia and tendon at neck level, initial encounter; M41.9 Scoliosis, unspecified; X50.9XXA Other and unspecified overexertion or strenuous movements or postures, initial encounter
CPT/HCPCS: 72050; 72070; 99212; G0463

== ENCOUNTER 2019-06-22 21:07 | Emergency (ER) | payer OTHER ==
--- NOTE | 2019-06-22 21:12 | UC ---
Dental HPI - HPI Summary HPI Summary: 28 yo female presents with toothache. She tells me that on 06/17 she had a left upper tooth extracted at a dentist in [place]. She was placed on amoxicillin for prophylactic infection and advised to take ibuprofen. Since that time she has had a dull ache in this area that is worse at bedtime. She has been taking ibuprofen, which does help, but the pain at bedtime is keeping her awake. She is eating and drinking well. Tolerating po. Denies fever or chills - History of Current Complaint Stated Complaint: PAIN IN TOOTH EXT. SITE Time Seen by Provider: 06/22/19 21:11 Hx Obtained From: Patient Hx Last Menstrual Period: 01/31/19 Onset/Duration: Sudden Onset Severity: Moderate Pain Intensity: 8 Pain Scale Used: 0-10 Numeric - Allergies/Home Medications Allergies/Adverse Reactions: Allergies Allergy/AdvReac Type Severity Reaction Status Date / Time sertraline [From Zoloft] Allergy Rash Verified 06/22/19 21:21 Home Medications: Home Medications Amoxicillin PO (*) [Amoxicillin 500 MG CAP*] 500 mg PO Q12H 06/22/19 [History Confirmed 06/22/19] PMH/Surg Hx/FS Hx/Imm Hx - Additional Past Medical History Additional PMH: None Other History Of: Negative For: HIV, Hepatitis B, Hepatitis C, Anticoagulant Therapy - Surgical History Surgical History: Yes Surgery Procedure, Year, and Place: TUBAL LIGATION - Family History Known Family History: Positive: Hypertension, Diabetes Negative: Cardiac Disease - Social History Occupation: Employed Full-time Lives: With Family Alcohol Use: Occasionally Alcohol Amount: 1 or 2 per day Substance Use Type: None Smoking Status (MU): Never Smoked Tobacco Have You Smoked in the Last Year: No - Immunization History Most Recent Influenza Vaccination: 07/28 Most Recent Tetanus Shot: 11/03/14 Most Recent Pneumonia Vaccination: none Review of Systems All Other Systems Reviewed And Are Negative: No Constitutional: Positive: Negative Skin: Positive: Negative Eyes: Positive: Negative ENT: Positive: Dental Pain Respiratory: Positive: Negative Cardiovascular: Positive: Negative Gastrointestinal: Positive: Negative Physical Exam - Summary Physical Exam Summary: GENERAL: NAD. WDWN. No pain distress. SKIN: No rashes, sores, lesions, or open wounds. HEENT: Head: AT/NC Nose: Nasal mucosa pink and moist. NTTP maxillary and frontal sinus. Throat: Posterior oropharynx without exudates, erythema, or tonsillar enlargement. Uvula midline. NECK: Supple. Nontender. No lymphadenopathy. CHEST: CTAB. No r/r/w. No accessory muscle use. Breathing comfortably and in no distress. CV: RRR. Without m/r/g. Pulses intact. Cap refill <2seconds NEURO: Alert. PSYCH: Age appropriate behavior. Triage Information Reviewed: Yes Vital Signs Reviewed: Yes Dental: Positive: Percussion Tenderness @ - Site of extracted tooth #15. Negative: Gross Decay/Caries @, Dental Fracture @, Abscess @, Cellulitis @, Cervical Lymphadenopathy, Bleeding Dental Complaint Course/Dx - Course Course Of Treatment: The extracted tooth site appears healthy and is without sign of infection. I will rx for tramadol for use BID for severe pain - mostly to use at bedtime and advise her to call her dentist for a recheck given that she is having continued pain. iSTOP Reference #: [id number] - Differential Dx/Diagnosis Provider Diagnosis: Pain, dental Discharge ED - Sign-Out/Discharge Documenting (check all that apply): Patient Departure All imaging exams completed and their final reports reviewed: No Studies - Discharge Plan Condition: Stable Disposition: HOME Prescriptions: Lidocaine 2% VISCOUS* [Xylocaine 2% Viscous*] 15 ml SWISH SPIT Q8H PRN #200 ml PRN Reason: Pain - Mild traMADol TAB* [Ultram*] 50 mg PO Q12H PRN #4 tab MDD 2 PRN Reason: Pain - Severe Patient Education Materials: Toothache (ED) Forms: *Work Release Referrals: Esther Bah MD [Primary Care Provider] - Additional Instructions: If you develop a fever, shortness of breath, chest pain, new or worsening symptoms - please call your PCP or go to the ED immediately. Your blood pressure was slightly elevated at todays visit. Please see your primary provider within 4 weeks for recheck and re-evaluation. I do not see any sign of infection on your exam today. Please continue antibiotic and ibuprofen. May take tramadol for severe pain as directed. I recommend that you call your dentist to have a recheck of the area if pain continues. - Billing Disposition and Condition Condition: STABLE Disposition: Home
[2019-06-22 21:21] VITALS: BP 136/85
[2019-06-22] MEDS ORDERED: traMADol TAB* 50 MG PO ONE (21:27)
== END 2019-06-22 21:40 | disposition home or self-care (01) ==
LOC: UCEAST 21:07
DX: K08.89 Other specified disorders of teeth and supporting structures (principal)
CPT/HCPCS: 99212; A9270-GY; G0463

== ENCOUNTER 2019-07-03 19:45 | Emergency (ER) | payer OTHER ==
[2019-07-03 21:07] LABS: ABS Eosinophils 0.1 10^3/ul (0-0.6); ABS Lymphocytes 1.5 10^3/ul (1.0-4.8); ABS Monocytes 0.7 10^3/ul (0-0.8); ABS Neutrophils 7.2 10^3/ul (1.5-7.7); Eosinophil % 0.8 %; Hematocrit 37 % (35-47); Hemoglobin 12.6 g/dL (12.0-16.0); Lymphocyte % 16.3 %; Mean Corpuscular HGB Conc 34 g/dL (31-36); Mean Corpuscular Hemoglobin 30 pg (27-31); Mean Corpuscular Volume 87 fL (80-97); Mean Platelet Volume 9.5 fL (7.4-10.4); Platelet Count 211 10^3/uL (150-450); Red Blood Count 4.27 10^6 /uL (3.70-4.87); Red Cell Distribution Width 14 % (10-15); White Blood Count 9.5 10^3/uL (3.5-10.8)
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
[2019-07-03 21:23] LABS: Albumin/Globulin Ratio 1.3 (1-3); BUN/Creatinine Ratio 22.1 (8-20); Calcium 9.1 mg/dL (8.6-10.3); EGFR African American 109.6 (>60); EGFR Non-African American 90.6 (>60); Potassium 3.4 mmol/L (3.5-5.0); Total Bilirubin 0.3 mg/dL (0.2-1.0)
[2019-07-03] MEDS ORDERED: Iohexol 300* (CONTRAST) 10 ML SDV IV ONE (21:30)
[2019-07-04 00:28] VITALS: BP 128/76
== END 2019-07-04 00:29 | disposition home or self-care (01) ==
LOC: MERGE 19:45 → ED 19:45
DX: R07.89 Other chest pain (principal); R06.02 Shortness of breath; K08.89 Other specified disorders of teeth and supporting structures; V49.40XA Driver injured in collision with unspecified motor vehicles in traffic accident, initial encounter; Y92.410 Unspecified street and highway as the place of occurrence of the external cause; Z88.8 Allergy status to other drugs, medicaments and biological substances
CPT/HCPCS: 36415; 71260; 74177; 80053; 84484; 85025; 93005; 99282; Q9967

== ENCOUNTER 2019-12-28 11:43 | Emergency (ER) | payer OTHER ==
--- OUTSIDE RECORDS SUMMARY | 2019-12-28 11:51 | XMS REPORT | Continuity of Care Document ---
:1990 External Reference #:[id number] Author Name Tony Everett MD Address [address] [place] [id number] Care Team Providers Name Role Phone Leonor Goodman NP Care Team Information Residential Advisor [phone] Problems Active Problems Provider Date Acute vaginitis Tony Everett MD Onset: 11/26/2019 Social History Type Date Description Comments Sex Unknown Tobacco Use Start: Unknown Never Smoked Cigarettes ETOH Use Currently consumes alcohol 2xwk Tobacco Use Start: Unknown Patient has never smoked Recreational Drug Use Does Not Use Drugs Smoking Status Reviewed: 11/26/19 Patient has never smoked Exercise Type/Frequency Exercises rarely Seat Belt/Car Seat Always uses seat belt Allergies, Adverse Reactions, Alerts Active Allergies Reaction Severity Comments Date Zoloft rash 04/22/2018 Inactive Allergies NKDA 07/14/2014 Medications Active Medications SIG Qnty Indications Ordering Provider Date Metronidazole take one tab by 14tabs Tony Everett MD 11/26/2019 500mg Tablets mouth twice a day for 7 days Wellbutrin SR Unknown 100mg Tablets ER 12HR History Medications Diflucan take 1 by mouth 2tabs Adelia Nagy CNM 09/03/2019 - 150mg for yeast. repeat 11/26/2019 Tablets x 1 in 72 hours as needed Medications Administered in Office Medication SIG Qnty Indications Ordering Provider Date PT SCRN Tbco Id as Non User Tony Everett MD 11/26/2019 Injection PT SCRN Tbco Id as Non User Adelia Nagy CNM 09/03/2019 Injection PT SCRN Tbco Id as Non User Mitch Ken CNM 04/29/2019 Injection PT SCRN Tbco Id as Non User Mitch Ken CNM 04/12/2019 Injection PT SCRN Tbco Id as Non User Mitch Ken CNM 02/05/2019 Injection PT SCRN Tbco Id as Non User Mitch Ken CNM 11/04/2018 Injection PT SCRN Tbco Id as Non User Mitch Ken CNM 04/22/2018 Injection Immunizations CPT Code Status Date Vaccine Lot # [id number] Given 10/29/2016 Tetnus, Diptheria Toxoids And Acellular Pertussis, [id number] PT > 7Yrs Old [id number] Given 11/03/2014 Tetnus, Diptheria Toxoids And Acellular Pertussis, [id number] PT > 7Yrs Old [id number] Given 07/14/2014 Influenza Virus Vaccine Split Virus Use For [id number] Individual 3Yr Older Vital Signs Date Vital Result Comment 11/26/2019 2:53pm BP Systolic 126 mmHg BP Diastolic 88 mmHg Height 63 inches 5'3" Weight 136.00 lb BMI (Body Mass Index) 24.1 kg/m2 Last Menstrual Period [id number] 2 Parity 2 09/03/2019 1:38pm BP Systolic 106 mmHg BP Diastolic 62 mmHg Height 63 inches 5'3" Weight 144.00 lb BMI (Body Mass Index) 25.5 kg/m2 Last Menstrual Period [id number] 2 Parity 2 Results Description No Information Available Procedures Description No Information Available Medical Devices Description No Information Available Encounters Type Date Location Provider Dx Diagnosis Office Visit 11/26/2019 3:00p [facility] Tony Everett MD N76.0 Acute vaginitis Office Visit 09/03/2019 1:45p [facility] Adelia Nagy CNM N76.0 Acute vaginitis Assessments Date Code Description Provider 11/26/2019 N76.0 Acute vaginitis Tony Everett MD 09/03/2019 N76.0 Acute vaginitis Adelia Nagy CNM Plan of Treatment No Information Available Functional Status Description No Information Available Mental Status Description No Information Available Referrals Description No Information Available
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
[2019-12-28 12:15] VITALS: BP 126/82
--- NOTE | 2019-12-28 12:23 | UC ---
Throat Pain/Nasal Audie HPI - HPI Summary HPI Summary: low grade fever x 1 day has no other symptoms, denies and cough , no sore throat, no runny nose or nasal congestion no abdominal pain ,no urinary sx, no n/v/d/c her work asked her to bee seen so she can return back to work - History of Current Complaint Chief Complaint: UCGeneralIllness Stated Complaint: FEVER Time Seen by Provider: 12/28/19 12:05 Hx Obtained From: Patient Hx Last Menstrual Period: 12/06/19 ?: No Onset/Duration: Gradual Onset, Lasting Days - 1 Severity: Mild Pain Intensity: 0 Cough: None Associated Signs & Symptoms: Positive: Fever. Negative: Dysphagia, FB Sensation , Wheezing, Hoarseness, Sinus Discomfort, Nasal Discharge, Vomiting, Rash - Allergies/Home Medications Allergies/Adverse Reactions: Allergies Allergy/AdvReac Type Severity Reaction Status Date / Time sertraline [From Zoloft] Allergy Rash Verified 12/28/19 12:06 Home Medications: Home Medications buPROPion TAB* [Wellbutrin TAB*] 100 mg PO BID 12/28/19 [History Confirmed 12/27] PMH/Surg Hx/FS Hx/Imm Hx Previously Healthy: Yes Other History Of: Negative For: HIV, Hepatitis B, Hepatitis C, Anticoagulant Therapy - Surgical History Surgical History: Yes Surgery Procedure, Year, and Place: TUBAL LIGATION - Family History Known Family History: Positive: Hypertension, Diabetes, Non-Contributory Negative: Cardiac Disease - Social History Alcohol Use: Occasionally Alcohol Amount: 1 or 2 per day Substance Use Type: None Smoking Status (MU): Never Smoked Tobacco Have You Smoked in the Last Year: No - Immunization History Most Recent Influenza Vaccination: 07/28 Most Recent Tetanus Shot: 11/03/14 Most Recent Pneumonia Vaccination: none Review of Systems All Other Systems Reviewed And Are Negative: Yes Constitutional: Positive: Fever. Negative: Chills, Fatigue Skin: Positive: Negative Eyes: Positive: Negative ENT: Positive: Negative Respiratory: Positive: Negative Is Patient Immunocompromised?: No Physical Exam Triage Information Reviewed: Yes Appearance: Well-Appearing, No Pain Distress, Well-Nourished Vital Signs: Initial Vital Signs Temp 99.1 F 12/28/19 12:07 Pulse 83 12/28/19 12:07 Resp 16 12/28/19 12:07 BP 126/82 12/28/19 12:07 Pulse Ox 99 12/28/19 12:07 Vital Signs Reviewed: Yes Eye Exam: Normal Eyes: Positive: Conjunctiva Clear ENT: Positive: Normal ENT inspection, Hearing grossly normal, Pharynx normal, TMs normal. Negative: Nasal congestion, Nasal drainage Neck: Positive: Supple, Nontender, No Lymphadenopathy Respiratory: Positive: Chest non-tender, Lungs clear, Normal breath sounds, No respiratory distress Cardiovascular Exam: Normal Cardiovascular: Positive: RRR, No Murmur, Pulses Normal Abdominal Exam: Normal Skin Exam: Normal Throat Pain/Nasal Course/Dx - Differential Dx/Diagnosis Provider Diagnosis: Viral illness Discharge ED - Sign-Out/Discharge Documenting (check all that apply): Patient Departure All imaging exams completed and their final reports reviewed: No Studies - Discharge Plan Condition: Stable Disposition: HOME Patient Education Materials: Viral Syndrome (ED) Forms: *Work Release Referrals: Esther Bah MD [Primary Care Provider] - If Needed - Billing Disposition and Condition Condition: STABLE Disposition: Home
== END 2019-12-28 12:35 | disposition home or self-care (01) ==
LOC: UCCORT 11:43
DX: B34.9 Viral infection, unspecified (principal); Z88.8 Allergy status to other drugs, medicaments and biological substances
CPT/HCPCS: 99211; G0463